=== PATIENT | female | born 1935 | race Caucasian/White ===

== ENCOUNTER 2016-07-30 15:34 | Inpatient (IN) | payer MEDICARE, OTHER ==
[~2016-07-30] VITALS: Ht 165.1 cm; Wt 71.7 kg
[~2016-07-30 15:34] MED LIST: ACET500T33 PO; ACET500T68 PO; AMIO200T2 PO; AMIT25TA PO; AMLO10TA2 PO; CALC-30 PO; CALC600T4 PO; CETI10TA30 PO; CHOL400D8 PO; FLEC100T PO; FLUT16SP NS; FURO-69 PO; LISI-334 PO; LISI40TA PO; LORA10TA3 PO; LOVA20TA2 PO; METO-269 PO; METO25TA9 PO; RIVA10TA PO; SERT100T PO
[2016-07-30 16:13] LABS: BASO # 0.1 x10^3/uL (0.0-0.2); BASO % 1 % (0-3); EOS % 7 % (0-3); HEMATOCRIT 37.4 % (36.0-47.0); HEMOGLOBIN 12.4 g/dL (12.0-15.5); LYMPH # 1.3 x10^3/uL (1.0-4.8); LYMPH % 18 % (24-48); MEAN CORPUSCULAR HEMOGLOBIN 29 pg (25-35); MEAN CORPUSCULAR HGB CONC 33 g/dL (31-37); MEAN CORPUSCULAR VOLUME 88 fL (79-100); MONO % 6 % (0-9); NEUT % 68 % (31-73); PLATELET COUNT 176 x10^3/uL (140-400); RED BLOOD COUNT 4.27 x10^6/uL (3.50-5.40); RED CELL DISTRIBUTION WIDTH 14.6 % (11.5-14.5)
[2016-07-30 16:24] LABS: CALCIUM 8.9 mg/dL (8.5-10.1); CREATININE 0.9 mg/dL (0.6-1.0); GFR 60.4; POTASSIUM 3.4 mmol/L (3.5-5.1)
--- NOTE | 2016-07-30 16:25 | RAD ---
Indication chest pain. A single view of the chest was obtained. Comparison is made to an examination 05/31/2016. The heart and pulmonary vessels appear unremarkable. A focal infiltrate is not seen. Pericardial fat pad is noted on the left. Significant pleural fluid is not seen. There is no pneumothorax. Healed left clavicular fracture is noted IMPRESSION:: No acute finding apparent in the chest
[2016-07-30] MEDS ORDERED: NITROGLYCERIN SUBLINGUAL 0.4 MG BOTTLE OF 25. SL PRN ×2 (17:30)
[2016-07-30] MEDS ORDERED: ONDANSETRON PF 4 MG/2 ML VIAL. IV PRN ×2 (17:30→20:15)
--- NOTE | 2016-07-30 18:36 | PHYS DOC ---
Past Medical History Past Medical History: A-Fib, High Cholesterol, Hypertension Past Surgical History: Appendectomy, Hysterectomy, Tonsillectomy Alcohol Use: Rarely Drug Use: None Adult General Chief Complaint Chief Complaint: CHEST PAIN HPI HPI This is a 81-year-old female who presents with ongoing chest pain that radiates across her chest and somewhat into her back as well. She states this is all started today area she has tried taking Pepcid and Tums without relief. She does have history of hypertension and hypercholesterolemia. She denies any history of cardiac disease although she states she was once told she may have mild congestive heart failure. She does take Lasix for lower extremity swelling. She denies any shortness of breath. She does rate her pain as a mild discomfort rated a 4 out of 10 on the pain scale. She denies any fever or chills. She denies any recent viral illnesses. Her blood pressure is mildly elevated in the 180/90 range. She does states she is compliant with her blood pressure medications. She states this is likely secondary to her his comfort. Review of Systems Review of Systems Constitutional: Denies fever or chills [] Eyes: Denies change in visual acuity, redness, or eye pain [] HENT: Denies nasal congestion or sore throat [] Respiratory: Denies cough or shortness of breath [] Cardiovascular: No additional information not addressed in HPI [] GI: Denies abdominal pain, nausea, vomiting, bloody stools or diarrhea [] : Denies dysuria or hematuria [] Musculoskeletal: Denies back pain or joint pain [] Integument: Denies rash or skin lesions [] Neurologic: Denies headache, focal weakness or sensory changes [] Endocrine: Denies polyuria or polydipsia [] Allergies Allergies Allergies Coded Allergies Type Severity Reaction Last Updated Verified Penicillins Allergy Intermediate 12/17/14 Yes Sulfa (Sulfonamide Antibiotics) Allergy Intermediate 12/17/14 Yes latex Allergy Intermediate Rash 01/17/15 Yes Physical Exam Physical Exam Constitutional: Well developed, well nourished, no acute distress, non-toxic appearance. [] HENT: Normocephalic, atraumatic, bilateral external ears normal, oropharynx moist, no oral exudates, nose normal. [] Eyes: PERRLA, EOMI, conjunctiva normal, no discharge. [] Neck: Normal range of motion, no tenderness, supple, no stridor. [] Cardiovascular:Heart rate regular rhythm, no murmur [] Lungs & Thorax: Bilateral breath sounds clear to auscultation [] Abdomen: Bowel sounds normal, soft, no tenderness, no masses, no pulsatile masses. [] Skin: Warm, dry, no erythema, no rash. [] Back: No tenderness, no CVA tenderness. [] Extremities: No tenderness, no cyanosis, no clubbing, ROM intact, no edema. [] Neurologic: Alert and oriented X 3, normal motor function, normal sensory function, no focal deficits noted. [] Psychologic: Affect normal, judgement normal, mood normal. [] Current Patient Data Vital Signs Vital Signs Date Time Temp Pulse Resp B/P Pulse Ox O2 Delivery O2 Flow Rate FiO2 07/30/16 16:45 60 20 192/78 95 Room Air 07/30/16 16:00 98.2 98.2 Lab Values Laboratory Tests Test 07/30/16 16:00 White Blood Count 7.0x10^3/uL (4.0-11.0) Red Blood Count 4.27x10^6/uL (3.50-5.40) Hemoglobin 12.4g/dL (12.0-15.5) Hematocrit 37.4% (36.0-47.0) Mean Corpuscular Volume 88fL (79-100) Mean Corpuscular Hemoglobin 29pg (25-35) Mean Corpuscular Hemoglobin Concent 33g/dL (31-37) Red Cell Distribution Width 14.6% (11.5-14.5) H Platelet Count 176x10^3/uL (140-400) Neutrophils (%) (Auto) 68% (31-73) Lymphocytes (%) (Auto) 18% (24-48) L Monocytes (%) (Auto) 6% (0-9) Eosinophils (%) (Auto) 7% (0-3) H Basophils (%) (Auto) 1% (0-3) Neutrophils # (Auto) 4.7x10^3uL (1.8-7.7) Lymphocytes # (Auto) 1.3x10^3/uL (1.0-4.8) Monocytes # (Auto) 0.4x10^3/uL (0.0-1.1) Eosinophils # (Auto) 0.5x10^3/uL (0.0-0.7) Basophils # (Auto) 0.1x10^3/uL (0.0-0.2) Sodium Level 140mmol/L (136-145) Potassium Level 3.4mmol/L (3.5-5.1) L Chloride Level 102mmol/L (98-107) Carbon Dioxide Level 26mmol/L (21-32) Anion Gap 12 (6-14) Blood Urea Nitrogen 18mg/dL (7-20) Creatinine 0.9mg/dL (0.6-1.0) Estimated GFR (Cockcroft-Gault) 60.4 Glucose Level 152mg/dL (70-99) H Calcium Level 8.9mg/dL (8.5-10.1) Troponin I Quantitative < 0.017ng/mL (0.000-0.055) Laboratory Tests 07/30/16 16:00 Laboratory Tests 07/30/16 16:00 EKG EKG EKG as interpreted by or shows sinus rhythm with a rate of 64 bpm. There are no acute ischemic ST findings on this EKG. Radiology/Procedures Radiology/Procedures Portable one view of the chest as interpreted by the radiologist does not reveal an acute cardiopulmonary process. Course & Med Decision Making Course & Med Decision Making Pertinent Labs and Imaging studies reviewed. (See chart for details) This 81-year-old female will be admitted for ongoing chest pain. Sibling nitroglycerin was administered for her ongoing pain. Her EKG and chest x-ray were unremarkable. Her set of cardiac enzymes is also negative. Her case is discussed with the hospitalist, Dr. Mendoza, who agreed to admit the patient with cardiology consult. Repeat troponins were ordered for her admission. She was admitted without incident. She states she took a full aspirin earlier today for her symptoms. Dragon Disclaimer Dragon Disclaimer This electronic medical record was generated, in whole or in part, using a voice recognition dictation system. Departure Departure Referrals: GAETANO DENISE DO (PCP) ARCADIO JOHNSON DO Jul 30, 2016 18:36
--- NOTE | 2016-07-30 18:53 | EKG ---
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
[2016-07-30 19:00] VITALS: BP 170/61
--- NOTE | 2016-07-30 20:11 | PDOC1 ---
History and Physical Past Medical History Past Medical History Past Medical History Cardiovascular: AFIB, ?CHF, HTN, Hyperlipidemia Psych: Anxiety ENT: Allergic Rhinitis Para: 6 Past Surgical History Past Surgical History: Hysterectomy Family History Family History: Cancer (sister -- ovarian CA, father -- melanoma), Diabetes ( mother, father), Heart Disease (mother, father, sister) Family History: Parent Social History Smoke: No ALCOHOL: none Drugs: None Cardiovascular: AFIB, CHF, HTN, Hyperlipidemia Psych: Anxiety Past Surgical History Past Surgical History: Appendectomy, Hysterectomy Family History Family History: Coronary Artery Disease Family History: Parent Social History ALCOHOL: none Drugs: None Current Medications Current Medications Current Medications Medications (Trade) Dose Ordered Sig/Darius Start Time Stop Time Status Last Admin Dose Admin Acetaminophen (Tylenol) 325 mg PRN Q6HRS PRN 07/30/16 20:15 UNV Acetaminophen/ Hydrocodone Bitart (Lortab 5/325) 1 tab PRN Q6HRS PRN 07/30/16 20:15 UNV Albuterol Sulfate (Ventolin Neb Soln) 2.5 mg PRN Q4HRS PRN 07/30/16 20:15 UNV Hydralazine HCl (Apresoline) 10 mg PRN Q4HRS PRN 07/30/16 20:15 UNV Nitroglycerin (Nitrostat) 0.4 mg PRN Q5MIN PRN 07/30/16 17:30 Ondansetron HCl (Zofran) 4 mg PRN Q8HRS PRN 07/30/16 20:15 UNV Allergies Allergies Allergies Coded Allergies Type Severity Reaction Last Updated Verified Penicillins Allergy Intermediate 12/17/14 Yes Sulfa (Sulfonamide Antibiotics) Allergy Intermediate 12/17/14 Yes latex Allergy Intermediate Rash 01/17/15 Yes ROS Review of System CONSTITUTIONAL: No fever or chills EYES: No recent changes SKIN: No rash or itching CARDIOVASCULAR: chest pain, no syncope, palpitations, or edema RESPIRATORY: No SOB or cough GASTROINTESTINAL: No nausea, vomiting or abdominal pain NEUROLOGICAL: No headaches or weakness ENDOCRINE: No cold or heat intolerance GENITOURINARY: No urgency or frequency of urination MUSCULOSKELETAL: No back pain or joint pain LYMPHATICS: No enlarged lymph nodes PSYCHIATRIC: No anxiety or depression Physical Exam Physical Exam GEN.: No apparent distress. Alert and oriented. HEENT: Head is normocephalic, atraumatic NECK: Supple. no jvd LUNGS: Clear to auscultation. normal airflow HEART: RRR, S1, S2 present. Peripheral pulses intact ABDOMEN: Soft, nontender. Positive bowel sounds. EXTREMITIES: Without any cyanosis. NEUROLOGIC: Normal speech, normal tone PSYCHIATRIC: Normal affect, normal mood. SKIN: No visible ulcerations Vitals Vitals Vital Signs Date Time Temp Pulse Resp B/P Pulse Ox O2 Delivery O2 Flow Rate FiO2 07/30/16 19:14 64 16 160/71 96 07/30/16 17:30 Room Air 07/30/16 16:00 98.2 98.2 Labs Labs Laboratory Tests Test 07/30/16 16:00 White Blood Count 7.0x10^3/uL (4.0-11.0) Red Blood Count 4.27x10^6/uL (3.50-5.40) Hemoglobin 12.4g/dL (12.0-15.5) Hematocrit 37.4% (36.0-47.0) Mean Corpuscular Volume 88fL (79-100) Mean Corpuscular Hemoglobin 29pg (25-35) Mean Corpuscular Hemoglobin Concent 33g/dL (31-37) Red Cell Distribution Width 14.6% (11.5-14.5) Platelet Count 176x10^3/uL (140-400) Neutrophils (%) (Auto) 68% (31-73) Lymphocytes (%) (Auto) 18% (24-48) Monocytes (%) (Auto) 6% (0-9) Eosinophils (%) (Auto) 7% (0-3) Basophils (%) (Auto) 1% (0-3) Neutrophils # (Auto) 4.7x10^3uL (1.8-7.7) Lymphocytes # (Auto) 1.3x10^3/uL (1.0-4.8) Monocytes # (Auto) 0.4x10^3/uL (0.0-1.1) Eosinophils # (Auto) 0.5x10^3/uL (0.0-0.7) Basophils # (Auto) 0.1x10^3/uL (0.0-0.2) Sodium Level 140mmol/L (136-145) Potassium Level 3.4mmol/L (3.5-5.1) Chloride Level 102mmol/L (98-107) Carbon Dioxide Level 26mmol/L (21-32) Anion Gap 12 (6-14) Blood Urea Nitrogen 18mg/dL (7-20) Creatinine 0.9mg/dL (0.6-1.0) Estimated GFR (Cockcroft-Gault) 60.4 Glucose Level 152mg/dL (70-99) Calcium Level 8.9mg/dL (8.5-10.1) Troponin I Quantitative < 0.017ng/mL (0.000-0.055) Laboratory Tests Test 07/30/16 16:00 White Blood Count 7.0x10^3/uL (4.0-11.0) Red Blood Count 4.27x10^6/uL (3.50-5.40) Hemoglobin 12.4g/dL (12.0-15.5) Hematocrit 37.4% (36.0-47.0) Mean Corpuscular Volume 88fL (79-100) Mean Corpuscular Hemoglobin 29pg (25-35) Mean Corpuscular Hemoglobin Concent 33g/dL (31-37) Red Cell Distribution Width 14.6% (11.5-14.5) Platelet Count 176x10^3/uL (140-400) Neutrophils (%) (Auto) 68% (31-73) Lymphocytes (%) (Auto) 18% (24-48) Monocytes (%) (Auto) 6% (0-9) Eosinophils (%) (Auto) 7% (0-3) Basophils (%) (Auto) 1% (0-3) Neutrophils # (Auto) 4.7x10^3uL (1.8-7.7) Lymphocytes # (Auto) 1.3x10^3/uL (1.0-4.8) Monocytes # (Auto) 0.4x10^3/uL (0.0-1.1) Eosinophils # (Auto) 0.5x10^3/uL (0.0-0.7) Basophils # (Auto) 0.1x10^3/uL (0.0-0.2) Sodium Level 140mmol/L (136-145) Potassium Level 3.4mmol/L (3.5-5.1) Chloride Level 102mmol/L (98-107) Carbon Dioxide Level 26mmol/L (21-32) Anion Gap 12 (6-14) Blood Urea Nitrogen 18mg/dL (7-20) Creatinine 0.9mg/dL (0.6-1.0) Estimated GFR (Cockcroft-Gault) 60.4 Glucose Level 152mg/dL (70-99) Calcium Level 8.9mg/dL (8.5-10.1) Troponin I Quantitative < 0.017ng/mL (0.000-0.055) VTE Prophylaxis Ordered VTE Prophylaxis Devices: Yes VTE Pharmacological Prophylaxi: Yes BRIAN CALLAHAN MD Jul 30, 2016 20:11
[2016-07-30] MEDS ORDERED: ALBUTEROL SULFATE 2.5 MG/3 ML NEBU. NEB PRN (20:15)
[2016-07-30] MEDS ORDERED: ACETAMINOPHEN 325 MG TABLET. PO PRN (20:15)
[2016-07-30] MEDS ORDERED: ATORVASTATIN CALCIUM 20 MG TABLET PO ONE (21:00)
[2016-07-30] MEDS ORDERED: RIVAROXABAN 10 MG TABLET. PO ONE (21:00)
[2016-07-30] MEDS ORDERED: SERTRALINE 50 MG TABLET. PO ONE (21:00)
[2016-07-30] MEDS ORDERED: POTASSIUM CHLORIDE 20 MEQ TABLET.ER. PO ONE (21:00)
[2016-07-30] MEDS ORDERED: METOPROLOL SUCC 24HR ER 50 MG TAB.ER.24H. PO ONE (21:00)
[2016-07-30] MEDS ORDERED: FLECAINIDE 50 MG TABLET. PO ONE (21:00)
[2016-07-30] MEDS: HYDROCODONE/APAP 5/325MG TABLET. PO PRN (21:33)
[2016-07-30 23:50] VITALS: BP 153/68
[2016-07-31] MEDS ORDERED: FLEC100T PO (02:34)
[2016-07-31 03:00] VITALS: BP 165/72
[2016-07-31 06:10] LABS: BASO # 0.1 x10^3/uL (0.0-0.2); BASO % 1 % (0-3); EOS % 9 % (0-3); HEMATOCRIT 38.6 % (36.0-47.0); HEMOGLOBIN 13.2 g/dL (12.0-15.5); LYMPH # 1.9 x10^3/uL (1.0-4.8); LYMPH % 30 % (24-48); MEAN CORPUSCULAR HEMOGLOBIN 29 pg (25-35); MEAN CORPUSCULAR HGB CONC 34 g/dL (31-37); MEAN CORPUSCULAR VOLUME 86 fL (79-100); MONO % 6 % (0-9); NEUT % 54 % (31-73); PLATELET COUNT 188 x10^3/uL (140-400); RED BLOOD COUNT 4.52 x10^6/uL (3.50-5.40); RED CELL DISTRIBUTION WIDTH 14.3 % (11.5-14.5); WHITE BLOOD COUNT 6.5 x10^3/uL (4.0-11.0)
[2016-07-31 06:31] LABS: CALCIUM 9.1 mg/dL (8.5-10.1); CREATININE 0.8 mg/dL (0.6-1.0); GFR 69.2; POTASSIUM 4.4 mmol/L (3.5-5.1)
[2016-07-31 07:00] VITALS: BP 235/103
[2016-07-31] MEDS ORDERED: FLUTICASONE 50MCG/NASAL SPRAY 16GM BOTTLE. NS PRN (08:15)
[2016-07-31] MEDS: hydrALAZINE 20 MG/ML VIAL. IVP PRN ×2 (08:15→20:27)
[2016-07-31] MEDS ORDERED: ACETAMINOPHEN 500 MG TABLET PO PRN (08:15)
[2016-07-31] MEDS ORDERED: SERTRALINE 50 MG TABLET. PO SCH (09:00)
[2016-07-31] MEDS ORDERED: ATORVASTATIN CALCIUM 10 MG TABLET. PO SCH ×2 (09:00→21:00)
[2016-07-31] MEDS ORDERED: RIVAROXABAN 10 MG TABLET. PO SCH ×2 (09:00→17:00)
--- NOTE | 2016-07-31 09:26 | EKG ---
[facility] [address] [place] [address] Test Date: 2016-07-31 Test Time: 09:31:24 Pat Name: ISRAEL MAC Department: Room: 200 1 Gender: F Field Technician: : 1935 Requested By: MATILDE QUINTERO Order Number: [id number] Reading MD: Measurements Intervals [place] Rate: 62 P: -90 [place]: 178 QRS: -12 QRSD: 104 T: 31 QT: 454 QTc: 463 Interpretive Statements SINUS RHYTHM LEFTWARD AXIS NO SPECIFIC ECG ABNORMALITIES RI6.01 Compared to ECG 06/01/2016 10:08:34 First degree AV block no longer present
--- NOTE | 2016-07-31 09:47 | PDOC ---
Provider Note Provider Note Pt. seen and examined. Dictated H&P Anxiety, HTN Add amlodipine. xanax prn, restoril for sleep. DC tomorrow if stable. thx for consult. ELVIRA LOPEZ MD Jul 31, 2016 09:47
[2016-07-31] MEDS ORDERED: TEMAZEPAM 15 MG CAPSULE PO PRN (10:15)
[2016-07-31] MEDS: FUROSEMIDE 20 MG TABLET PO SCH (10:16)
[2016-07-31] MEDS: CETIRIZINE HCL 10 MG TABLET PO SCH (10:17)
[2016-07-31] MEDS: CALCIUM CARBONATE 500 MG TABLET PO SCH (10:17)
[2016-07-31] MEDS: FLECAINIDE 50 MG TABLET. PO SCH (10:18)
[2016-07-31] MEDS: LISINOPRIL 40 MG TABLET. PO SCH (10:18)
[2016-07-31] MEDS: CHOLECALCIFEROL (VITAMIN D3) 1,000 UNIT TABLET PO SCH (10:18)
[2016-07-31] MEDS: METOPROLOL SUCC 24HR ER 25 MG TAB.ER.24H. PO SCH (10:18)
[2016-07-31] MEDS: HYDROCODONE/APAP 5/325MG TABLET. PO PRN ×2 (10:19→18:56)
[2016-07-31] MEDS ORDERED: AMLODIPINE BESYLATE 10 MG TABLET PO ONE (10:45)
[2016-07-31 10:47] VITALS: BP 148/79
--- NOTE | 2016-07-31 11:23 | CONS ---
DATE OF CONSULTATION: 07/31/2016 REASON FOR CONSULTATION: Chest pain. HISTORY OF PRESENT ILLNESS: The patient is a pleasant 81-year-old woman who comes into the hospital in the setting of hypertension. She reportedly had some hypertension at home, although yesterday with some chest discomfort, which prompted admission to the hospital. She denies any syncope or palpitations. She has been compliant with her medications. Per family, apparently she had some hypertensive episodes approximately 2-3 weeks ago, which resolved without any significant issues. She since arrival has had intermittent chest pain as well with blood pressure lability and systolic spikes up to 220 or so. She otherwise denies any new changes at home. Since her most recent cardioversion, she has done quite well and has had recovery of her functional capacity back to baseline. During a long discussion with the patient and her family, it appears that she has had a long standing history of anxiety, treated with sertraline and over the last few days, she has had increasing anxiety issues, mostly related to her relationship with her as well as other generalized issues related to her family. PAST MEDICAL HISTORY: 1. Hypertension. 2. Anxiety. 3. Paroxysmal atrial fibrillation, status post cardioversion x 2. SOCIAL HISTORY: The patient is . Denies any alcohol, tobacco or illicit drug use. FAMILY HISTORY: Noncontributory. MEDICATIONS: 1. Metoprolol 25 mg XL daily. 2. Flecainide 100 mg b.i.d. 3. Lisinopril 40 mg daily. 4. Atorvastatin 10 mg daily. 5. Sertraline. ALLERGIES: TO PENICILLIN, SULFA AND LATEX. REVIEW OF SYSTEMS: Negative for 10 out of 14 systems reviewed, unless otherwise mentioned above in HPI. PHYSICAL EXAMINATION: VITAL SIGNS: Afebrile, heart rate 65, blood pressure 160/80, pulse ox 98 on room air. GENERAL: She appears mildly anxious, alert and oriented x 3. HEAD AND NECK: Unremarkable. CARDIAC: Regular rate and rhythm without any murmurs, rubs or gallops. LUNGS: Clear to auscultation. ABDOMEN: Soft, nontender, nondistended. EXTREMITIES: No clubbing, cyanosis or edema. 2+ radial pulses. NEUROLOGIC: No focal deficits. MUSCULOSKELETAL: No trauma. DIAGNOSTIC STUDIES: 1. Hemoglobin, platelets, creatinine, potassium and cardiac enzymes are negative. 2. EKG is unremarkable. 3. Telemetry is unremarkable. 4. Myocardial perfusion study within the last year has been normal. She has had a recent echocardiogram, which demonstrated normal LV systolic function. IMPRESSION: 1. 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 2. No obvious signs of myocardial ischemia. 3. Hypertension, likely related to age as well as multiple anxiety provoking issues with suboptimally controlled anxiety. RECOMMENDATIONS: 1. We will start her on amlodipine 10 mg daily and I have advised her to take it easy today and I have asked her family to leave the room and we will treat her anxiety with her home medications and I have asked her to follow up with her primary care physician to reassess any further needs for medication therapy. We will monitor her overnight and if she is stable and with better blood pressure control, anticipate discharge in the morning. Thank you for this consultation. ELVIRA LOPEZ MD DR: AVE/fausto JOB#: [id number] / [id number] MARTINE
--- NOTE | 2016-07-31 12:25 | PDOC ---
PROGRESS NOTES Chief Complaint Chief Complaint cc: chest pain A/P Chest pain, possible due to anxiety Chronic afib in sinus HTN Plan add amlodipine troponin negative labs better cardiology recommendatons noted telemetry oral AC supportive care History of Present Illness History of Present Illness headaches no fever Vitals Vitals Vital Signs Date Time Temp Pulse Resp B/P Pulse Ox O2 Delivery O2 Flow Rate FiO2 07/31/16 10:47 97.6 62 18 148/79 96 Room Air 97.6 Physical Exam General: Alert, Oriented X3 Heart: Normal S1, Normal S2 Lungs: Clear, Crackles Abdomen: Normal bowel sounds Extremities: No clubbing Labs LABS Laboratory Tests Test 07/30/16 16:00 07/30/16 23:23 07/31/16 05:20 White Blood Count 7.0x10^3/uL (4.0-11.0) 6.5x10^3/uL (4.0-11.0) Red Blood Count 4.27x10^6/uL (3.50-5.40) 4.52x10^6/uL (3.50-5.40) Hemoglobin 12.4g/dL (12.0-15.5) 13.2g/dL (12.0-15.5) Hematocrit 37.4% (36.0-47.0) 38.6% (36.0-47.0) Mean Corpuscular Volume 88fL (79-100) 86fL (79-100) Mean Corpuscular Hemoglobin 29pg (25-35) 29pg (25-35) Mean Corpuscular Hemoglobin Concent 33g/dL (31-37) 34g/dL (31-37) Red Cell Distribution Width 14.6% (11.5-14.5) 14.3% (11.5-14.5) Platelet Count 176x10^3/uL (140-400) 188x10^3/uL (140-400) Neutrophils (%) (Auto) 68% (31-73) 54% (31-73) Lymphocytes (%) (Auto) 18% (24-48) 30% (24-48) Monocytes (%) (Auto) 6% (0-9) 6% (0-9) Eosinophils (%) (Auto) 7% (0-3) 9% (0-3) Basophils (%) (Auto) 1% (0-3) 1% (0-3) Neutrophils # (Auto) 4.7x10^3uL (1.8-7.7) 3.5x10^3uL (1.8-7.7) Lymphocytes # (Auto) 1.3x10^3/uL (1.0-4.8) 1.9x10^3/uL (1.0-4.8) Monocytes # (Auto) 0.4x10^3/uL (0.0-1.1) 0.4x10^3/uL (0.0-1.1) Eosinophils # (Auto) 0.5x10^3/uL (0.0-0.7) 0.6x10^3/uL (0.0-0.7) Basophils # (Auto) 0.1x10^3/uL (0.0-0.2) 0.1x10^3/uL (0.0-0.2) Sodium Level 140mmol/L (136-145) 143mmol/L (136-145) Potassium Level 3.4mmol/L (3.5-5.1) 4.4mmol/L (3.5-5.1) Chloride Level 102mmol/L (98-107) 106mmol/L (98-107) Carbon Dioxide Level 26mmol/L (21-32) 28mmol/L (21-32) Anion Gap 12 (6-14) 9 (6-14) Blood Urea Nitrogen 18mg/dL (7-20) 18mg/dL (7-20) Creatinine 0.9mg/dL (0.6-1.0) 0.8mg/dL (0.6-1.0) Estimated GFR (Cockcroft-Gault) 60.4 69.2 Glucose Level 152mg/dL (70-99) 86mg/dL (70-99) Calcium Level 8.9mg/dL (8.5-10.1) 9.1mg/dL (8.5-10.1) Troponin I Quantitative < 0.017ng/mL (0.000-0.055) < 0.017ng/mL (0.000-0.055) < 0.017ng/mL (0.000-0.055) Assessment and Plan Assessmemt and Plan Problems Medical Problems: (1) Chest pain Status: Acute Problems: Comment Review of Relevant I have reviewed the following items neftaly (where applicable) has been applied. Labs Laboratory Tests Test 07/30/16 16:00 07/30/16 23:23 07/31/16 05:20 White Blood Count 7.0x10^3/uL (4.0-11.0) 6.5x10^3/uL (4.0-11.0) Red Blood Count 4.27x10^6/uL (3.50-5.40) 4.52x10^6/uL (3.50-5.40) Hemoglobin 12.4g/dL (12.0-15.5) 13.2g/dL (12.0-15.5) Hematocrit 37.4% (36.0-47.0) 38.6% (36.0-47.0) Mean Corpuscular Volume 88fL (79-100) 86fL (79-100) Mean Corpuscular Hemoglobin 29pg (25-35) 29pg (25-35) Mean Corpuscular Hemoglobin Concent 33g/dL (31-37) 34g/dL (31-37) Red Cell Distribution Width 14.6% (11.5-14.5) 14.3% (11.5-14.5) Platelet Count 176x10^3/uL (140-400) 188x10^3/uL (140-400) Neutrophils (%) (Auto) 68% (31-73) 54% (31-73) Lymphocytes (%) (Auto) 18% (24-48) 30% (24-48) Monocytes (%) (Auto) 6% (0-9) 6% (0-9) Eosinophils (%) (Auto) 7% (0-3) 9% (0-3) Basophils (%) (Auto) 1% (0-3) 1% (0-3) Neutrophils # (Auto) 4.7x10^3uL (1.8-7.7) 3.5x10^3uL (1.8-7.7) Lymphocytes # (Auto) 1.3x10^3/uL (1.0-4.8) 1.9x10^3/uL (1.0-4.8) Monocytes # (Auto) 0.4x10^3/uL (0.0-1.1) 0.4x10^3/uL (0.0-1.1) Eosinophils # (Auto) 0.5x10^3/uL (0.0-0.7) 0.6x10^3/uL (0.0-0.7) Basophils # (Auto) 0.1x10^3/uL (0.0-0.2) 0.1x10^3/uL (0.0-0.2) Sodium Level 140mmol/L (136-145) 143mmol/L (136-145) Potassium Level 3.4mmol/L (3.5-5.1) 4.4mmol/L (3.5-5.1) Chloride Level 102mmol/L (98-107) 106mmol/L (98-107) Carbon Dioxide Level 26mmol/L (21-32) 28mmol/L (21-32) Anion Gap 12 (6-14) 9 (6-14) Blood Urea Nitrogen 18mg/dL (7-20) 18mg/dL (7-20) Creatinine 0.9mg/dL (0.6-1.0) 0.8mg/dL (0.6-1.0) Estimated GFR (Cockcroft-Gault) 60.4 69.2 Glucose Level 152mg/dL (70-99) 86mg/dL (70-99) Calcium Level 8.9mg/dL (8.5-10.1) 9.1mg/dL (8.5-10.1) Troponin I Quantitative < 0.017ng/mL (0.000-0.055) < 0.017ng/mL (0.000-0.055) < 0.017ng/mL (0.000-0.055) Laboratory Tests Test 07/30/16 16:00 07/30/16 23:23 07/31/16 05:20 White Blood Count 7.0x10^3/uL (4.0-11.0) 6.5x10^3/uL (4.0-11.0) Red Blood Count 4.27x10^6/uL (3.50-5.40) 4.52x10^6/uL (3.50-5.40) Hemoglobin 12.4g/dL (12.0-15.5) 13.2g/dL (12.0-15.5) Hematocrit 37.4% (36.0-47.0) 38.6% (36.0-47.0) Mean Corpuscular Volume 88fL (79-100) 86fL (79-100) Mean Corpuscular Hemoglobin 29pg (25-35) 29pg (25-35) Mean Corpuscular Hemoglobin Concent 33g/dL (31-37) 34g/dL (31-37) Red Cell Distribution Width 14.6% (11.5-14.5) 14.3% (11.5-14.5) Platelet Count 176x10^3/uL (140-400) 188x10^3/uL (140-400) Neutrophils (%) (Auto) 68% (31-73) 54% (31-73) Lymphocytes (%) (Auto) 18% (24-48) 30% (24-48) Monocytes (%) (Auto) 6% (0-9) 6% (0-9) Eosinophils (%) (Auto) 7% (0-3) 9% (0-3) Basophils (%) (Auto) 1% (0-3) 1% (0-3) Neutrophils # (Auto) 4.7x10^3uL (1.8-7.7) 3.5x10^3uL (1.8-7.7) Lymphocytes # (Auto) 1.3x10^3/uL (1.0-4.8) 1.9x10^3/uL (1.0-4.8) Monocytes # (Auto) 0.4x10^3/uL (0.0-1.1) 0.4x10^3/uL (0.0-1.1) Eosinophils # (Auto) 0.5x10^3/uL (0.0-0.7) 0.6x10^3/uL (0.0-0.7) Basophils # (Auto) 0.1x10^3/uL (0.0-0.2) 0.1x10^3/uL (0.0-0.2) Sodium Level 140mmol/L (136-145) 143mmol/L (136-145) Potassium Level 3.4mmol/L (3.5-5.1) 4.4mmol/L (3.5-5.1) Chloride Level 102mmol/L (98-107) 106mmol/L (98-107) Carbon Dioxide Level 26mmol/L (21-32) 28mmol/L (21-32) Anion Gap 12 (6-14) 9 (6-14) Blood Urea Nitrogen 18mg/dL (7-20) 18mg/dL (7-20) Creatinine 0.9mg/dL (0.6-1.0) 0.8mg/dL (0.6-1.0) Estimated GFR (Cockcroft-Gault) 60.4 69.2 Glucose Level 152mg/dL (70-99) 86mg/dL (70-99) Calcium Level 8.9mg/dL (8.5-10.1) 9.1mg/dL (8.5-10.1) Troponin I Quantitative < 0.017ng/mL (0.000-0.055) < 0.017ng/mL (0.000-0.055) < 0.017ng/mL (0.000-0.055) Medications Current Medications Ondansetron HCl (Zofran) 4 mg PRN Q8HRS PRN IV NAUSEA/VOMITING; Start 07/30/16 at 17:30; Stop 07/31/16 at 08:14; Status DC Nitroglycerin (Nitrostat) 0.4 mg PRN Q5MIN PRN SL CHEST PAIN; Start 07/30/16 at 17:30; Stop 07/31/16 at 08:14; Status DC Nitroglycerin (Nitrostat) 0.4 mg PRN Q5MIN PRN SL CHEST PAIN; Start 07/30/16 at 17:30 Acetaminophen (Tylenol) 325 mg PRN Q6HRS PRN PO MILD PAIN / TEMP; Start at 20:15; Stop 07/31/16 at 08:15; Status DC Acetaminophen/ Hydrocodone Bitart (Lortab 5/325) 1 tab PRN Q6HRS PRN PO MODERATE TO SEVERE PAIN Last administered on 07/31/16 10:19; Start 07/30/16 at 20:15 Hydralazine HCl (Apresoline) 10 mg PRN Q4HRS PRN IVP ELEVATED BP, SEE COMMENTS Last administered on 07/31/16 08:15; Start 07/30/16 at 20:15 Ondansetron HCl (Zofran) 4 mg PRN Q8HRS PRN IV NAUSEA/VOMITING; Start 07/30/16 at 20:15 Albuterol Sulfate (Ventolin Neb Soln) 2.5 mg PRN Q4HRS PRN NEB SHORTNESS OF BREATH; Start 07/30/16 at 20:15 Potassium Chloride (Klor-Con) 20 meq 1X ONCE PO Last administered on 21:00; Start 07/30/16 at 21:00; Stop 07/30/16 at 21:01; Status DC Metoprolol Succinate (Toprol Xl) 50 mg 1X ONCE PO Last administered on 21:31; Start 07/30/16 at 21:00; Stop 07/30/16 at 21:01; Status DC Flecainide Acetate (Tambocor) 100 mg 1X ONCE PO Last administered on 21:32; Start 07/30/16 at 21:00; Stop 07/30/16 at 21:01; Status DC Sertraline HCl (Zoloft) 200 mg 1X ONCE PO Last administered on 07/30/16 21:31 ; Start 07/30/16 at 21:00; Stop 07/30/16 at 21:01; Status DC Atorvastatin Calcium (Lipitor) 20 mg 1X ONCE PO Last administered on 21:30; Start 07/30/16 at 21:00; Stop 07/30/16 at 21:01; Status DC Rivaroxaban (Xarelto) 20 mg 1X ONCE PO Last administered on 07/30/16 21:31; Start 07/30/16 at 21:00; Stop 07/30/16 at 21:01; Status DC Acetaminophen (Tylenol) 500 mg PRN TID PRN PO PAIN; Start 07/31/16 at 08:15 Fluticasone Propionate (Flonase) 2 spray PRN DAILY PRN NS ALLERGIES; Start 05/06 at 08:15 Furosemide (Lasix) 20 mg DAILY PO Last administered on 07/31/16 10:16; Start 07/31/16 at 09:00 Lisinopril (Prinivil) 40 mg DAILY PO Last administered on 07/31/16 10:18; Start 07/31/16 at 09:00 Metoprolol Succinate (Toprol Xl) 25 mg DAILY PO Last administered on 07/31/16 10:18; Start 07/31/16 at 09:00 Rivaroxaban (Xarelto) 20 mg DAILY PO ; Start 07/31/16 at 09:00; Stop 07/31/16 at 12:19; Status DC Calcium Carbonate/ Glycine (Oscal) 500 mg DAILY PO Last administered on 10:17; Start 07/31/16 at 09:00 Vitamin D (Vitamin D3) 1,000 unit DAILY PO Last administered on 07/31/16 10:18 ; Start 07/31/16 at 09:00 Flecainide Acetate (Tambocor) 100 mg QHS PO ; Start 07/31/16 at 21:00 Flecainide Acetate (Tambocor) 50 mg DAILY PO Last administered on 07/31/16 10: 18; Start 07/31/16 at 09:00 Cetirizine HCl (Zyrtec) 10 mg DAILY PO Last administered on 07/31/16 10:17; Start 07/31/16 at 09:00 Atorvastatin Calcium (Lipitor) 5 mg DAILY PO ; Start 07/31/16 at 09:00; Stop 05/06 at 12:18; Status DC Sertraline HCl (Zoloft) 100 mg BID PO Last administered on 07/31/16 10:17; Start 07/31/16 at 09:00; Stop 07/31/16 at 12:19; Status DC Temazepam (Restoril) 15 mg PRN QHS PRN PO INSOMNIA; Start 07/31/16 at 10:15 Amlodipine Besylate (Norvasc) 10 mg DAILY PO ; Start 08/01/16 at 09:00 Amlodipine Besylate (Norvasc) 10 mg 1X ONCE PO ; Start 07/31/16 at 10:45; Stop 07/31/16 at 10:46; Status DC Atorvastatin Calcium (Lipitor) 5 mg QHS PO ; Start 07/31/16 at 21:00 Rivaroxaban (Xarelto) 20 mg DAILYWSUP PO ; Start 07/31/16 at 17:00 Sertraline HCl (Zoloft) 100 mg BID PO ; Start 07/31/16 at 21:00 Active Scripts Active Reported Flecainide Acetate 100 Mg Tablet 50 Mg PO DAILY Lasix (Furosemide) 20 Mg Tablet 1 Tab PO DAILY Metoprolol Succinate ( Xl ) (Metoprolol Succinate) 25 Mg Tab.er.24h 2 Tab PO DAILY Acetaminophen 500 Mg Tablet 1 Tab PO PRN TID PRN Zoloft (Sertraline Hcl) 100 Mg Tablet 2 Tab PO BID Flecainide Acetate 100 Mg Tablet 1 Tab PO HS Fluticasone Propionate Nasal [place] (Fluticasone Propionate) 16 Gm [place].susp 2 [place] NS DAILY PRN Vitamin D3 (Cholecalciferol (Vitamin D3)) 400 Unit/1 Ml Drops 800 Unit PO DAILY Calcium (Calcium Carbonate) 600 Mg Tablet 600 Mg PO DAILY Lisinopril 40 Mg Tablet 1 Tab PO DAILY Loratadine 10 Mg Tablet 1 Tab PO DAILY Xarelto (Rivaroxaban) 10 Mg Tablet 20 Mg PO DAILY Lovastatin 20 Mg Tablet 1 Tab PO DAILY Vitals/I & O Vital Sign - Last 24 Hours 07/30/16 07/30/16 07/30/16 07/30/16 16:00 16:45 17:30 18:25 Temp 98.2 98.2 Pulse 64 60 58 64 Resp 16 20 20 16 B/P 181/82 192/78 191/77 184/79 Pulse Ox 97 95 97 96 O2 Delivery Room Air Room Air Room Air 07/30/16 07/30/16 07/30/16 07/30/16 19:00 19:00 19:14 21:31 Temp 97.4 207.3 97.4 207.3 Pulse 61 61 64 64 Resp 16 16 B/P 170/61 170/61 160/71 160/71 Pulse Ox 94 94 96 O2 Delivery Room Air 07/30/16 07/30/16 07/30/16 07/30/16 21:32 21:33 22:33 23:50 Temp 98.0 98.0 Pulse 64 54 Resp 18 18 14 B/P 160/71 153/68 Pulse Ox 95 O2 Delivery Room Air Room Air Room Air 07/31/16 07/31/16 07/31/16 07/31/16 03:00 07:00 08:15 10:18 Temp 98.5 97.5 98.5 97.5 Pulse 55 60 61 61 Resp 14 17 B/P 165/72 235/103 235/103 235/103 Pulse Ox 97 96 O2 Delivery Room Air Room Air 07/31/16 07/31/16 07/31/16 07/31/16 10:18 10:18 10:19 10:47 Temp 97.6 97.6 Pulse 61 61 62 Resp 20 18 B/P 235/103 235/103 148/79 Pulse Ox 96 96 O2 Delivery Room Air Intake and Output 07/30/16 07/30/16 07/31/16 15:00 23:00 07:00 Intake Total 120 ml Balance 120 ml BRIAN CALLAHAN MD Jul 31, 2016 12:25
[2016-07-31 15:00] VITALS: BP_SYST 144; BP_SYST 175; BP_DIAS 68; BP_DIAS 86
[2016-07-31 20:00] VITALS: BP 223/119
[2016-07-31] MEDS ORDERED: FLECAINIDE 50 MG TABLET. PO SCH (21:00)
[2016-07-31] MEDS: SERTRALINE 50 MG TABLET. PO SCH (21:39)
[2016-07-31 22:56] VITALS: BP 131/63
[2016-08-01 02:37] VITALS: BP 158/63
--- NOTE | 2016-08-01 03:35 | HP ---
ADMIT DATE: 07/30/2016 CHIEF COMPLAINT: Chest pain. HISTORY OF PRESENT ILLNESS: This is a 81-year-old female patient with prior history of AFib and recent cardioversion in 05/2016, presented to the ER with complaints of chest pain, started this morning, noticed after she woke up. She tried Pepcid, Tums, but no success. She denies any irregular heartbeat, palpitations, syncope or shortness of breath; however, the patient noticed this nagging pain across her chest, sometimes radiating to her back, both sides. She describes this pain 3-09/27. She denies any fever, chills or cough; however, her pain is better if she sits, worse with lying down. She denies any noncompliance or sick contacts. PAST MEDICAL HISTORY: Please see my electronic H and P. REVIEW OF SYSTEMS: Please see my electronic H and P. PHYSICAL EXAMINATION: Please see my electronic H and P. LABORATORY FINDINGS: Sodium 140, potassium 3.4, chloride 102, carbon dioxide 26, anion gap 12, BUN is 18, creatinine is 0.9, glucose is 152. First set of troponin less than 0.017, hemoglobin is 12.4, MCV is 88, platelets 176. IMAGING STUDIES: Chest x-ray: No acute process seen. EKG: Normal sinus rhythm, no acute ST-T wave changes. ASSESSMENT: 1. Chest pain, unclear etiology, possible pleuritis. 2. Chronic AFib, currently in sinus rhythm. Recent cardioversion in 05/2016. 3. Hypertension. 4. Hyperlipidemia. PLAN: 1. To admit the patient to Cardiac floor on telemetry. Two sets of troponins. 2. Cardiology consultation. 3. Home medications reviewed and reconciled. 4. Old records reviewed. 5. If the patient's blood pressures are not controlled, we will try IV hydralazine 10 mg. 6. P.r.n. nitroglycerin. 7. Replace potassium. BRIAN CALLAHAN MD DR: NBA/fausto JOB#: [id number] / [id number] MARTINE
[2016-08-01 09:00] VITALS: BP 145/65
[2016-08-01] MEDS ORDERED: AMLODIPINE BESYLATE 10 MG TABLET PO SCH (09:00)
[2016-08-01] MEDS: CHOLECALCIFEROL (VITAMIN D3) 1,000 UNIT TABLET PO SCH (09:34)
[2016-08-01] MEDS: CALCIUM CARBONATE 500 MG TABLET PO SCH (09:34)
[2016-08-01] MEDS: FUROSEMIDE 20 MG TABLET PO SCH (09:35)
[2016-08-01] MEDS: LISINOPRIL 40 MG TABLET. PO SCH (09:35)
[2016-08-01] MEDS: METOPROLOL SUCC 24HR ER 25 MG TAB.ER.24H. PO SCH (09:35)
[2016-08-01] MEDS: SERTRALINE 50 MG TABLET. PO SCH (09:36)
[2016-08-01] MEDS: FLECAINIDE 50 MG TABLET. PO SCH (09:37)
[2016-08-01] MEDS: CETIRIZINE HCL 10 MG TABLET PO SCH (09:37)
[2016-08-01] MEDS ORDERED: AMLO10TA2 PO (10:41)
[2016-08-01 11:00] VITALS: BP 143/69
--- NOTE | 2016-08-01 11:18 | PDOC ---
PROGRESS NOTES Chief Complaint Chief Complaint cc: chest pain A/P Chest pain, possible due to anxiety Chronic afib in sinus HTN Plan add amlodipine, if BP stable can go home today and follow up with PCP and cardiology as out pt. troponin negative labs better cardiology recommendatons noted telemetry oral AC supportive care History of Present Illness History of Present Illness headaches no fever Vitals Vitals Vital Signs Date Time Temp Pulse Resp B/P Pulse Ox O2 Delivery O2 Flow Rate FiO2 08/01/16 09:37 73 145/65 08/01/16 02:37 98.3 20 94 Room Air 98.3 Physical Exam General: Alert, Oriented X3 Heart: Normal S1, Normal S2 Lungs: Clear, Crackles Abdomen: Normal bowel sounds Extremities: No clubbing Assessment and Plan Assessmemt and Plan Problems Medical Problems: (1) Chest pain Status: Acute Problems: Comment Review of Relevant I have reviewed the following items neftaly (where applicable) has been applied. Labs Laboratory Tests Test 07/30/16 16:00 07/30/16 23:23 07/31/16 05:20 White Blood Count 7.0x10^3/uL (4.0-11.0) 6.5x10^3/uL (4.0-11.0) Red Blood Count 4.27x10^6/uL (3.50-5.40) 4.52x10^6/uL (3.50-5.40) Hemoglobin 12.4g/dL (12.0-15.5) 13.2g/dL (12.0-15.5) Hematocrit 37.4% (36.0-47.0) 38.6% (36.0-47.0) Mean Corpuscular Volume 88fL (79-100) 86fL (79-100) Mean Corpuscular Hemoglobin 29pg (25-35) 29pg (25-35) Mean Corpuscular Hemoglobin Concent 33g/dL (31-37) 34g/dL (31-37) Red Cell Distribution Width 14.6% (11.5-14.5) 14.3% (11.5-14.5) Platelet Count 176x10^3/uL (140-400) 188x10^3/uL (140-400) Neutrophils (%) (Auto) 68% (31-73) 54% (31-73) Lymphocytes (%) (Auto) 18% (24-48) 30% (24-48) Monocytes (%) (Auto) 6% (0-9) 6% (0-9) Eosinophils (%) (Auto) 7% (0-3) 9% (0-3) Basophils (%) (Auto) 1% (0-3) 1% (0-3) Neutrophils # (Auto) 4.7x10^3uL (1.8-7.7) 3.5x10^3uL (1.8-7.7) Lymphocytes # (Auto) 1.3x10^3/uL (1.0-4.8) 1.9x10^3/uL (1.0-4.8) Monocytes # (Auto) 0.4x10^3/uL (0.0-1.1) 0.4x10^3/uL (0.0-1.1) Eosinophils # (Auto) 0.5x10^3/uL (0.0-0.7) 0.6x10^3/uL (0.0-0.7) Basophils # (Auto) 0.1x10^3/uL (0.0-0.2) 0.1x10^3/uL (0.0-0.2) Sodium Level 140mmol/L (136-145) 143mmol/L (136-145) Potassium Level 3.4mmol/L (3.5-5.1) 4.4mmol/L (3.5-5.1) Chloride Level 102mmol/L (98-107) 106mmol/L (98-107) Carbon Dioxide Level 26mmol/L (21-32) 28mmol/L (21-32) Anion Gap 12 (6-14) 9 (6-14) Blood Urea Nitrogen 18mg/dL (7-20) 18mg/dL (7-20) Creatinine 0.9mg/dL (0.6-1.0) 0.8mg/dL (0.6-1.0) Estimated GFR (Cockcroft-Gault) 60.4 69.2 Glucose Level 152mg/dL (70-99) 86mg/dL (70-99) Calcium Level 8.9mg/dL (8.5-10.1) 9.1mg/dL (8.5-10.1) Troponin I Quantitative < 0.017ng/mL (0.000-0.055) < 0.017ng/mL (0.000-0.055) < 0.017ng/mL (0.000-0.055) Medications Current Medications Ondansetron HCl (Zofran) 4 mg PRN Q8HRS PRN IV NAUSEA/VOMITING; Start 07/30/16 at 17:30; Stop 07/31/16 at 08:14; Status DC Nitroglycerin (Nitrostat) 0.4 mg PRN Q5MIN PRN SL CHEST PAIN; Start 07/30/16 at 17:30; Stop 07/31/16 at 08:14; Status DC Nitroglycerin (Nitrostat) 0.4 mg PRN Q5MIN PRN SL CHEST PAIN; Start 07/30/16 at 17:30 Acetaminophen (Tylenol) 325 mg PRN Q6HRS PRN PO MILD PAIN / TEMP; Start at 20:15; Stop 07/31/16 at 08:15; Status DC Acetaminophen/ Hydrocodone Bitart (Lortab 5/325) 1 tab PRN Q6HRS PRN PO MODERATE TO SEVERE PAIN Last administered on 07/31/16 18:56; Start 07/30/16 at 20:15 Hydralazine HCl (Apresoline) 10 mg PRN Q4HRS PRN IVP ELEVATED BP, SEE COMMENTS Last administered on 07/31/16 20:27; Start 07/30/16 at 20:15 Ondansetron HCl (Zofran) 4 mg PRN Q8HRS PRN IV NAUSEA/VOMITING Last administered on 08/01/16 05:58; Start 07/30/16 at 20:15 Albuterol Sulfate (Ventolin Neb Soln) 2.5 mg PRN Q4HRS PRN NEB SHORTNESS OF BREATH; Start 07/30/16 at 20:15 Potassium Chloride (Klor-Con) 20 meq 1X ONCE PO Last administered on 21:00; Start 07/30/16 at 21:00; Stop 07/30/16 at 21:01; Status DC Metoprolol Succinate (Toprol Xl) 50 mg 1X ONCE PO Last administered on 21:31; Start 07/30/16 at 21:00; Stop 07/30/16 at 21:01; Status DC Flecainide Acetate (Tambocor) 100 mg 1X ONCE PO Last administered on 21:32; Start 07/30/16 at 21:00; Stop 07/30/16 at 21:01; Status DC Sertraline HCl (Zoloft) 200 mg 1X ONCE PO Last administered on 07/30/16 21:31 ; Start 07/30/16 at 21:00; Stop 07/30/16 at 21:01; Status DC Atorvastatin Calcium (Lipitor) 20 mg 1X ONCE PO Last administered on 21:30; Start 07/30/16 at 21:00; Stop 07/30/16 at 21:01; Status DC Rivaroxaban (Xarelto) 20 mg 1X ONCE PO Last administered on 07/30/16 21:31; Start 07/30/16 at 21:00; Stop 07/30/16 at 21:01; Status DC Acetaminophen (Tylenol) 500 mg PRN TID PRN PO PAIN; Start 07/31/16 at 08:15 Fluticasone Propionate (Flonase) 2 spray PRN DAILY PRN NS ALLERGIES; Start 05/06 at 08:15 Furosemide (Lasix) 20 mg DAILY PO Last administered on 08/01/16 09:35; Start 07/31/16 at 09:00 Lisinopril (Prinivil) 40 mg DAILY PO Last administered on 08/01/16 09:35; Start 07/31/16 at 09:00 Metoprolol Succinate (Toprol Xl) 25 mg DAILY PO Last administered on 08/01/16 09:35; Start 07/31/16 at 09:00 Rivaroxaban (Xarelto) 20 mg DAILY PO ; Start 07/31/16 at 09:00; Stop 07/31/16 at 12:19; Status DC Calcium Carbonate/ Glycine (Oscal) 500 mg DAILY PO Last administered on 09:34; Start 07/31/16 at 09:00 Vitamin D (Vitamin D3) 1,000 unit DAILY PO Last administered on 08/01/16 09:34 ; Start 07/31/16 at 09:00 Flecainide Acetate (Tambocor) 100 mg QHS PO Last administered on 07/31/16 21: 40; Start 07/31/16 at 21:00 Flecainide Acetate (Tambocor) 50 mg DAILY PO Last administered on 08/01/16 09: 37; Start 07/31/16 at 09:00 Cetirizine HCl (Zyrtec) 10 mg DAILY PO Last administered on 08/01/16 09:37; Start 07/31/16 at 09:00 Atorvastatin Calcium (Lipitor) 5 mg DAILY PO ; Start 07/31/16 at 09:00; Stop 05/06 at 12:18; Status DC Sertraline HCl (Zoloft) 100 mg BID PO Last administered on 07/31/16 10:17; Start 07/31/16 at 09:00; Stop 07/31/16 at 12:19; Status DC Temazepam (Restoril) 15 mg PRN QHS PRN PO INSOMNIA Last administered on 21:39; Start 07/31/16 at 10:15 Amlodipine Besylate (Norvasc) 10 mg DAILY PO Last administered on 08/01/16 09: 36; Start 08/01/16 at 09:00 Amlodipine Besylate (Norvasc) 10 mg 1X ONCE PO Last administered on 07/31/16 12:58; Start 07/31/16 at 10:45; Stop 07/31/16 at 10:46; Status DC Atorvastatin Calcium (Lipitor) 5 mg QHS PO Last administered on 07/31/16 21:39 ; Start 07/31/16 at 21:00 Rivaroxaban (Xarelto) 20 mg DAILYWSUP PO Last administered on 07/31/16 18:14; Start 07/31/16 at 17:00 Sertraline HCl (Zoloft) 100 mg BID PO Last administered on 08/01/16 09:36; Start 07/31/16 at 21:00 Active Scripts Active Reported Flecainide Acetate 100 Mg Tablet 50 Mg PO DAILY Lasix (Furosemide) 20 Mg Tablet 1 Tab PO DAILY Metoprolol Succinate ( Xl ) (Metoprolol Succinate) 25 Mg Tab.er.24h 2 Tab PO DAILY Acetaminophen 500 Mg Tablet 1 Tab PO PRN TID PRN Zoloft (Sertraline Hcl) 100 Mg Tablet 2 Tab PO BID Flecainide Acetate 100 Mg Tablet 1 Tab PO HS Fluticasone Propionate Nasal Murphys (Fluticasone Propionate) 16 Gm Murphys.susp 2 [place]phys NS DAILY PRN Vitamin D3 (Cholecalciferol (Vitamin D3)) 400 Unit/1 Ml Drops 800 Unit PO DAILY Calcium (Calcium Carbonate) 600 Mg Tablet 600 Mg PO DAILY Lisinopril 40 Mg Tablet 1 Tab PO DAILY Loratadine 10 Mg Tablet 1 Tab PO DAILY Xarelto (Rivaroxaban) 10 Mg Tablet 20 Mg PO DAILY Lovastatin 20 Mg Tablet 1 Tab PO DAILY Vitals/I & O Vital Sign - Last 24 Hours 07/31/16 07/31/16 07/31/16 07/31/16 11:20 12:58 15:00 18:56 Temp 97.9 97.9 Pulse 62 58 Resp 22 18 B/P 148/79 175/86 Pulse Ox 96 96 96 O2 Delivery Room Air Room Air 07/31/16 07/31/16 07/31/16 07/31/16 19:56 20:00 20:00 20:27 Temp 97.8 97.8 Pulse 60 67 Resp 14 20 B/P 223/119 223/119 Pulse Ox 96 O2 Delivery Room Air Room Air Room Air 07/31/16 07/31/16 08/01/16 08/01/16 21:40 22:56 02:37 09:35 Temp 97.8 98.3 97.8 98.3 Pulse 63 63 73 73 Resp 18 20 B/P 140/78 131/63 158/63 145/65 Pulse Ox 96 94 O2 Delivery Room Air Room Air 08/01/16 08/01/16 08/01/16 09:35 09:36 09:37 Pulse 73 73 73 B/P 158/63 145/65 145/65 Intake and Output 07/31/16 07/31/16 08/01/16 15:00 23:00 07:00 Intake Total 240 ml 660 ml Balance 240 ml 660 ml BRIAN CALLAHAN MD Aug 01, 2016 11:17
[2016-08-01] MEDS ORDERED: ACETAMINOPHEN 325 MG TABLET. PO PRN (13:00)
[2016-08-01 15:00] VITALS: BP 110/62
== END 2016-08-01 15:45 | disposition home or self-care (01) | DRG 880 ==
LOC: ER 15:34 → 2 NORTH 17:13
PROVIDERS: ADMIT Internal Medicine; ATTEND Internal Medicine
DX: F41.9 Anxiety disorder, unspecified (principal); E78.5 Hyperlipidemia, unspecified; E78.00 Pure hypercholesterolemia, unspecified; I48.0 Paroxysmal atrial fibrillation; I48.2 Chronic atrial fibrillation; J30.9 Allergic rhinitis, unspecified; R07.89 Other chest pain; I11.0 Hypertensive heart disease with heart failure; Z80.41 Family history of malignant neoplasm of ovary; Z80.8 Family history of malignant neoplasm of other organs or systems; Z82.49 Family history of ischemic heart disease and other diseases of the circulatory system; Z83.3 Family history of diabetes mellitus; Z90.49 Acquired absence of other specified parts of digestive tract; Z90.710 Acquired absence of both cervix and uterus; Z88.0 Allergy status to penicillin; Z88.2 Allergy status to sulfonamides; Z91.040 Latex allergy status
CPT/HCPCS: 36415; 71010; 80048; 82947; 84484; 85027; 93005; 94250; 94760; J0360; J2405; 99285-25

== ENCOUNTER → 2016-10-01 | Outpatient (CLI) | payer MEDICARE ==
--- NOTE | 2016-10-01 16:12 | RAD ---
APPROVED REPORT Patient Location: OUT-PATIENT Exam Type: Ankle to Brachial Index Risk Factors Hypertension Pressures/Indices RightABI LeftABI Brachial 136mmHgBrachial 142mmHg Ankle(PT) 134djBa6.13Ankle(PT) 132tnUa5.16 Findings No evidence of significant high grade disease based on above JODIE. Critical Notification Critical Value: No <Conclusion> Normal JODIE
--- NOTE | 2016-10-01 16:14 | RAD ---
APPROVED REPORT Patient Location: OUT-PATIENT Indications Uncontrolled HTN Renal Artery Doppler Right Renal Artery Left Renal Arter y Proximal 169.2/38.2 cm/secProximal 140.1/21.7 cm/sec Mid 120.8/29.4 cm/secMid 117.0/33.6 cm/sec Distal 84.0/23.1 cm/secDistal 106.3/24.5 cm/sec Renal/Aorta Ratio 2.01Renal/Aorta Ratio 1.70 Prox. Resistive Index 0.77Prox. Resistive Index 0.85 Mid Resistive Index 0.76Mid Resistive Index 0.71 Distal Resistive Index 0.71Distal Resistive Index 0.77 Aortic Doppler VelocityWaveform Mid. Aorta 81.8 cm/sec Findings Lo scale images of the bilateral kidneys reveal normal length with the right kidney measuring 9.4 c m and the left kidney measuring 9.5 cm. On the right the proximal renal artery has mildly elevated velocities but the renal to aortic ratios are within normal limits. Resistive indices are within normal limits. Similarly on the left the renal to aortic ratios as well as resistive indices are within normal limits. Peak right renal velocities noted to be 169 cm/s, peak left renal artery velocities at 147 m/s with aortic velocities of 82 cm/s. Critical Notification Critical Value: No <Conclusion> No significant renal artery stenosis bilaterally.
== END | disposition home or self-care (01) ==
LOC: US 14:20
PROVIDERS: ATTEND Internal Medicine Cardiovascular Disease
DX: I10 Essential (primary) hypertension (principal)
CPT/HCPCS: 93922; 93975

== ENCOUNTER 2016-11-19 13:30 | Emergency (ER) | payer BC, MEDICARE ==
[~2016-11-19] VITALS: Ht 165.1 cm; Wt 71.2 kg
[2016-11-19] MEDS ORDERED: IV NORMAL SALINE 1000ML BAG 1,000 ML IV ONE (14:15)
[2016-11-19 14:27] LABS: BASO # 0.1 x10^3/uL (0.0-0.2); BASO % 1 % (0-3); EOS % 8 % (0-3); HEMATOCRIT 37.4 % (36.0-47.0); HEMOGLOBIN 12.6 g/dL (12.0-15.5); LYMPH # 1.1 x10^3/uL (1.0-4.8); LYMPH % 19 % (24-48); MEAN CORPUSCULAR HEMOGLOBIN 30 pg (25-35); MEAN CORPUSCULAR HGB CONC 34 g/dL (31-37); MEAN CORPUSCULAR VOLUME 89 fL (79-100); MONO % 7 % (0-9); NEUT % 65 % (31-73); PLATELET COUNT 161 x10^3/uL (140-400); RED BLOOD COUNT 4.22 x10^6/uL (3.50-5.40); RED CELL DISTRIBUTION WIDTH 13.8 % (11.5-14.5)
[2016-11-19] MEDS ORDERED: RIVA15TA PO (14:37)
--- NOTE | 2016-11-19 14:39 | EKG ---
[facility] [address] [place] [address] Test Date: 2016-11-19 Test Time: 13:50:38 Pat Name: ISRAEL MAC Department: Room: Gender: F [employer]: : [id number] Requested By: EDUARDO SINGH Order Number: [id number] Reading MD: Bridger Orta Measurements Intervals [place] Rate: 57 P: -139 ME: 148 QRS: -25 QRSD: 106 T: 2 QT: 450 QTc: 441 Interpretive Statements SINUS RHYTHM LEFTWARD AXIS T ABNORMALITY IN ANTEROSEPTAL LEADS ABNORMAL ECG RI6.01 Compared to ECG 07/31/2016 09:31:24 T-wave abnormality now present Electronically Signed On 11-24-2016 9:31:47 CDT by Bridger Orta
[2016-11-19 15:02] LABS: INR 1.3 (0.8-1.1); PROTHROMBIN TIME PATIENT 15.8 SEC (11.7-14.0)
[2016-11-19 15:02] LABS: BILIRUBIN,URINE NEGATIVE (NEG); GLUCOSE,URINE NEGATIVE (NEG); NITRITE,URINE NEGATIVE (NEG); PROTEIN,URINE NEGATIVE (NEG-TRACE); UROBILINOGEN,URINE 0.2 mg/dL (0.2 mg/dL)
[2016-11-19 15:04] LABS: CREATININE 0.9 mg/dL (0.6-1.0); GFR 60.4
[2016-11-19 15:08] LABS: ALBUMIN 3.9 g/dL (3.4-5.0); ALBUMIN/GLOBULIN RATIO 1.3 (1.0-1.7); MAGNESIUM 2.1 mg/dL (1.8-2.4); TOTAL BILIRUBIN 0.5 mg/dL (0.2-1.0); TOTAL PROTEIN 6.9 g/dL (6.4-8.2)
[2016-11-19 15:20] LABS: BACTERIA,URINE 0 /HPF (0-FEW); RBC,URINE OCC /HPF (0-2); SQUAMOUS EPITHELIAL CELL,UR FEW /LPF; WBC,URINE OCC /HPF (0-4)
--- NOTE | 2016-11-19 15:21 | PHYS DOC ---
Past Medical History Past Medical History: A-Fib, Arthritis, High Cholesterol, Hypertension Past Surgical History: Appendectomy, Hysterectomy, Tonsillectomy, Other Additional Past Surgical Histo: cardioversion x2 Alcohol Use: Rarely Drug Use: None Adult General Chief Complaint Chief Complaint: Palpitations HPI HPI Patient is a 81 year old female presenting to the emergency department for unclear reasons initially. She says that her primary care physician was unwilling to see her today so she came to the emergency department. I asked her what symptoms she was having as the triage complaint was palpitations but she denied any palpitations chest pain or shortness of breath to me. She says that she feels weak and tired all the time and this is been worse over the past 2 weeks. I asked her if there is anything specifically different and she said that she feels more tired. She denies any nausea vomiting diarrhea and she says that she has been eating and drinking well. She does have history of atrial fibrillation and is on multiple blood pressure medications for rate control and flecainide for rhythm control. She is on Cymbalta also but denies any black or bloody stools. She is in no obvious distress with normal vital signs except mild sinus bradycardia. Review of Systems Review of Systems Constitutional: Denies fever or chills [] Eyes: Denies change in visual acuity, redness, or eye pain [] HENT: Denies nasal congestion or sore throat [] Respiratory: Denies cough or shortness of breath [] Cardiovascular: No additional information not addressed in HPI [] GI: Denies abdominal pain, nausea, vomiting, bloody stools or diarrhea [] : Denies dysuria or hematuria [] Musculoskeletal: Denies back pain or joint pain [] Integument: Denies rash or skin lesions [] Neurologic: Denies headache, focal weakness or sensory changes [] Current Medications Current Medications Current Medications Medications (Trade) Dose Ordered Sig/Darius Start Time Stop Time Status Last Admin Dose Admin Sodium Chloride 1,000 ml @ 1,000 mls/hr 1X ONCE 11/19/16 14:15 11/19/16 15:14 DC 11/19/16 14:18 1,000 MLS/HR Allergies Allergies Allergies Coded Allergies Type Severity Reaction Last Updated Verified Penicillins Allergy Intermediate 12/17/14 Yes Sulfa (Sulfonamide Antibiotics) Allergy Intermediate 12/17/14 Yes latex Allergy Intermediate Rash 01/17/15 Yes Physical Exam Physical Exam Constitutional: Well developed, well nourished, no acute distress, non-toxic appearance. [] HENT: Normocephalic, atraumatic, bilateral external ears normal, oropharynx moist, no oral exudates, nose normal. [] Eyes: PERRLA, EOMI, conjunctiva normal, no discharge. [] Neck: Normal range of motion, no tenderness, supple, no stridor. [] Cardiovascular:Heart rate regular rhythm, no murmur [] Lungs & Thorax: Bilateral breath sounds clear to auscultation [] Abdomen: Bowel sounds normal, soft, no tenderness, no masses, no pulsatile masses. [] Skin: Warm, dry, no erythema, no rash. [] Back: No tenderness, no CVA tenderness. [] Extremities: No tenderness, no cyanosis, no clubbing, ROM intact, no edema. [] Neurologic: Alert and oriented X 3, normal motor function, normal sensory function, no focal deficits noted. [] Current Patient Data Vital Signs Vital Signs Date Time Temp Pulse Resp B/P (MAP) Pulse Ox O2 Delivery O2 Flow Rate FiO2 11/19/16 13:50 98.2 57 22 152/100 (117) 95 Room Air 98.2 Lab Values Laboratory Tests Test 11/19/16 13:44 11/19/16 14:20 Urine Collection Type Unknown Urine Color Yellow Urine Clarity Clear Urine pH 6.0 Urine Specific [place] <=1.005 Urine Protein Negative mg/dL (NEG-TRACE) Urine Glucose (UA) Negative mg/dL (NEG) Urine Ketones (Stick) Negative mg/dL (NEG) Urine Blood Negative (NEG) Urine Nitrite Negative (NEG) Urine Bilirubin Negative (NEG) Urine Urobilinogen Dipstick 0.2 mg/dL (0.2 mg/dL) Urine Leukocyte Esterase Negative (NEG) Urine RBC Occ /HPF (0-2) Urine WBC Occ /HPF (0-4) Urine Squamous Epithelial Cells Few /LPF Urine Bacteria 0 /HPF (0-FEW) White Blood Count 6.0 x10^3/uL (4.0-11.0) Red Blood Count 4.22 x10^6/uL (3.50-5.40) Hemoglobin 12.6 g/dL (12.0-15.5) Hematocrit 37.4 % (36.0-47.0) Mean Corpuscular Volume 89 fL (79-100) Mean Corpuscular Hemoglobin 30 pg (25-35) Mean Corpuscular Hemoglobin Concent 34 g/dL (31-37) Red Cell Distribution Width 13.8 % (11.5-14.5) Platelet Count 161 x10^3/uL (140-400) Neutrophils (%) (Auto) 65 % (31-73) Lymphocytes (%) (Auto) 19 % (24-48) L Monocytes (%) (Auto) 7 % (0-9) Eosinophils (%) (Auto) 8 % (0-3) H Basophils (%) (Auto) 1 % (0-3) Neutrophils # (Auto) 3.9 x10^3uL (1.8-7.7) Lymphocytes # (Auto) 1.1 x10^3/uL (1.0-4.8) Monocytes # (Auto) 0.4 x10^3/uL (0.0-1.1) Eosinophils # (Auto) 0.5 x10^3/uL (0.0-0.7) Basophils # (Auto) 0.1 x10^3/uL (0.0-0.2) Prothrombin Time 15.8 SEC (11.7-14.0) H Prothrombin Time INR 1.3 (0.8-1.1) H PTT 42 SEC (24-38) H Sodium Level 141 mmol/L (136-145) Potassium Level 4.0 mmol/L (3.5-5.1) Chloride Level 102 mmol/L (98-107) Carbon Dioxide Level 29 mmol/L (21-32) Anion Gap 10 (6-14) Blood Urea Nitrogen 17 mg/dL (7-20) Creatinine 0.9 mg/dL (0.6-1.0) Estimated GFR (Cockcroft-Gault) 60.4 BUN/Creatinine Ratio 19 (6-20) Glucose Level 85 mg/dL (70-99) Calcium Level 9.0 mg/dL (8.5-10.1) Magnesium Level 2.1 mg/dL (1.8-2.4) Total Bilirubin 0.5 mg/dL (0.2-1.0) Aspartate Amino Transferase (AST) 14 U/L (15-37) L Alanine Aminotransferase (ALT) 21 U/L (14-59) Alkaline Phosphatase 73 U/L (46-116) Creatine Kinase 35 U/L (26-192) Troponin I Quantitative < 0.017 ng/mL (0.000-0.055) BR-Sal-E-Type Natriuretic Peptide 1630 pg/mL (0-449) H Total Protein 6.9 g/dL (6.4-8.2) Albumin 3.9 g/dL (3.4-5.0) Albumin/Globulin Ratio 1.3 (1.0-1.7) Thyroid Stimulating Hormone (TSH) 2.973 uIU/mL (0.358-3.74) Laboratory Tests 11/19/16 14:20 Laboratory Tests 11/19/16 14:20 EKG EKG Normal sinus rhythm at 57 beats per minutes with leftward axis T wave inversion in leads V1 and V2 V3 but no ST elevation or depression. Radiology/Procedures Radiology/Procedures [] Course & Med Decision Making Course & Med Decision Making I spoke to Dr. Lopez about patient and he said that she usually does have this complaint and he recommended not changing any medications for now but having her keep a log of her blood pressure and pulse and seeing her in clinic next week. Patient and aware and agreeable with plan for discharge and verbalized understanding of the need for short-term follow-up and strict ER return precautions discussed worsening pain shortness of breath or other general concerns. Dragon Disclaimer Dragon Disclaimer This electronic medical record was generated, in whole or in part, using a voice recognition dictation system. Departure Departure Impression: Primary Impression: Generalized weakness Disposition: 01 HOME, SELF-CARE Condition: GOOD Referrals: GAETANO DENISE DO (PCP) ELVIRA LOPEZ MD Patient Instructions: Weakness Additional Instructions: CALL TO GET AN APPOINTMENT WITH DR. LOPEZ FOR NEXT WEEK. COME BACK TO THE ED SOONER WITH ANY NEW OR WORSENING PAIN, SOA, OR OTHER GENERAL CONCERNS. EDUARDO SINGH DO Nov 19, 2016 15:21
[2016-11-19 16:15] VITALS: BP 154/72
== END 2016-11-19 16:29 | disposition home or self-care (01) ==
LOC: ER 13:30
DX: R53.1 Weakness (principal); R00.2 Palpitations; I48.91 Unspecified atrial fibrillation; M19.90 Unspecified osteoarthritis, unspecified site; E78.00 Pure hypercholesterolemia, unspecified; I10 Essential (primary) hypertension; Z90.710 Acquired absence of both cervix and uterus; Z90.49 Acquired absence of other specified parts of digestive tract; Z88.2 Allergy status to sulfonamides; Z88.0 Allergy status to penicillin; Z91.040 Latex allergy status
CPT/HCPCS: 36415; 80053; 81001; 82550; 83735; 83880; 84443; 84484; 85027; 85610; 85730; 93005; 96360; 96361; 99285; J7030

== ENCOUNTER → 2016-12-16 | Outpatient (CLI) | payer BC ==
[2016-11-19 16:15] VITALS: BP 154/72
[~2016-12-16] MED LIST changes: +RIVA15TA PO
--- NOTE | 2016-12-16 14:32 | KCIC ---
MRI of the lumbar spine without contrast 12/16/2016 CLINICAL HISTORY: Low back pain and bilateral leg weakness. TECHNIQUE: Unenhanced T1-weighted and T2-weighted sagittal and axial and sagittal images of the lumbar spine were obtained. Findings: Minimal S-shaped curvature of the thoracolumbar spine is seen. Degenerative signal changes are seen involving all of the disks of the lumbar spine. Loss of height at L4-5 and L5-S1 discs is noted. Degenerative signal changes are seen within the marrow surrounding these discs. The conus medullaris morphology, position, and signal characteristics. The L1-2 disc space is within normal limits. At the L2-3 disc space there is a mild to moderate generalized disc bulge. This is eccentric to the left. Degenerative changes are seen involving the facet joints bilaterally. There is moderate ligamentum flavum hypertrophy bilaterally. These findings when combined do not result in significant central spinal canal or neural foraminal stenosis. At the L3-4 disc space there is a mild generalized disc bulge. Degenerative changes are seen involving the facet joints bilaterally. There is moderate ligamentum flavum hypertrophy bilaterally. These findings when combined do not result in significant central spinal canal or neural foraminal stenosis. At the L4-5 disc space there is a moderate generalized disc bulge. This is eccentric to the right. Degenerative changes are seen involving the facet joints bilaterally. There is moderate ligamentum flavum hypertrophy bilaterally. These findings when combined result in mild central spinal canal stenosis. Moderate right neural foraminal stenosis is seen. The left neural foramen is patent. At the L5-S1 disc space there is a moderate generalized disc bulge. This is eccentric to the left. Degenerative changes are seen involving the facet joints bilaterally. There is mild ligamentum flavum hypertrophy bilaterally. These findings when combine result in mild left greater than right central spinal canal stenosis. Mild to moderate left greater than right neural foraminal stenosis is seen. IMPRESSION: The changes of degenerative disc disease are seen involving the lumbar spine. These findings result in mild central spinal canal stenosis at L4-5 and mild left greater than right central spinal canal stenosis at L5-S1. Moderate right neural foraminal stenosis is seen at L4-5. Mild to moderate left greater than right neural foraminal stenosis is seen at L5-S1. Electronically signed by: Pantera Graham MD (12/16/2016 2:28 PM)
== END | disposition home or self-care (01) ==
LOC: KCIC MRI 12:55
PROVIDERS: ATTEND Orthopaedic Surgery
DX: M51.36 Other intervertebral disc degeneration, lumbar region (principal); M48.06 Spinal stenosis, lumbar region
CPT/HCPCS: 72148

== ENCOUNTER → 2017-02-15 | Outpatient (CLI) | payer BC ==
[~2017-02-15] MED LIST changes: +GADOBUTROL 7.5 MMOL/7.5 ML VIAL IV ONE
--- NOTE | 2017-02-15 16:26 | RAD ---
MRI Brain with and without contrast History: Dizziness, unsteady gait, left-sided hearing loss Technique: Multiplanar, multi sequential pre and postcontrast MR imaging was performed of the brain. Contrast: 7 cc Gadavist Comparison: None Findings: There is no evidence of recent infarct or cytotoxic edema. Ventricular size is within normal limits. There is mild supratentorial atrophy more greatly affecting the parietal lobes.There is no significant midline shift, intraaxial mass effect, or focal abnormal extra-axial fluid collection. There is no significant signal abnormality of the brain parenchyma. There is no nodular parenchymal or leptomeningeal enhancement. There is preservation of the major intracranial flow-voids at the skull base. The cerebellar tonsils are normal in location. There is no significant abnormality of the pineal gland or small pituitary gland. There is near complete opacification of the left maxillary sinus apparently with air-fluid level. There is minimal right maxillary sinus mucosal thickening. There is moderate to severe ethmoid air cell mucosal thickening greater anteriorly, mild frontal sinus and sphenoid sinus mucosal thickening present. There has been lens surgery bilaterally. There is mild patchy fluid and thickening of the left mastoid air cells, right mastoid air cells aerated. There is preserved marrow signal of the clivus. There is no enhancing mass of the cerebellopontine angles or internal auditory canals. Impression: 1. There is no evidence of recent infarct or abnormal intracranial enhancement. 2. There is near complete opacification of the left maxillary sinus with probable air-fluid level which may be due to acute sinusitis, also moderate to severe ethmoid air cell mucosal thickening. There is minimal patchy fluid of the left mastoid air cells. 3. There is mild supratentorial atrophy more greatly affecting parietal lobes. Electronically signed by: Jose Negrete MD (02/15/2017 4:22 PM) [id number]
== END | disposition home or self-care (01) ==
LOC: MRI 14:09
PROVIDERS: ATTEND Otolaryngology
DX: H91.92 Unspecified hearing loss, left ear (principal); R42 Dizziness and giddiness
CPT/HCPCS: 70553; A9585

== ENCOUNTER → 2017-03-14 | Outpatient (CLI) | payer BC ==
[~2017-03-14] MED LIST changes: -GADOBUTROL 7.5 MMOL/7.5 ML VIAL IV ONE; +METO-239 PO; -METO25TA9 PO
--- NOTE | 2017-03-14 12:31 | KCIC ---
CT of the paranasal sinuses HISTORY: Chronic sinusitis. TECHNIQUE: Standard noncontrast imaging. COMPARISON: None FINDINGS: Mild bilateral ethmoid sinus mucosal thickening. Minimal mucosal thickening of the right sphenoid sinus. Maxillary and frontal sinuses are clear. No fluid levels are identified. Ostiomeatal units are patent bilaterally. No evidence of aggressive bone destruction. IMPRESSION: Minimal to mild right sphenoid and bilateral ethmoid sinus mucosal thickening. Electronically signed by: Roc Amin MD (03/14/2017 12:28 PM) [id number]
== END | disposition home or self-care (01) ==
LOC: KCIC CT 09:54
PROVIDERS: ATTEND Otolaryngology
DX: J32.9 Chronic sinusitis, unspecified (principal)
CPT/HCPCS: 70486

== ENCOUNTER 2017-08-08 10:53 | Day surgery (SDC) | payer BC, OTHER ==
[~2017-08-08 10:53] MED LIST changes: -ACET500T33 PO; -ACET500T68 PO; -AMIO200T2 PO; -AMIT25TA PO; -AMLO10TA2 PO; -CALC-30 PO; -CALC600T4 PO; -CETI10TA30 PO; -CHOL400D8 PO; -FLEC100T PO; -FLUT16SP NS; -FURO-69 PO; +HYDROmorphone 2 MG/ML VIAL IV; -LISI-334 PO; -LISI40TA PO; -LORA10TA3 PO; -LOVA20TA2 PO; -METO-239 PO; -METO-269 PO; +MORPHINE SULFATE 2 MG/ML DISP.SYRIN. IV; +ONDANSETRON PF 4 MG/2 ML VIAL. IV; -RIVA10TA PO; -RIVA15TA PO; -SERT100T PO
[2017-08-08] MEDS ORDERED: PROPOFOL 20 ML IV (11:11)
[2017-08-08] MEDS ORDERED: ROCURONIUM 50 MG/5 ML VIAL. (11:11)
[2017-08-08] MEDS ORDERED: LIDOCAINE 2% PF Vial for OR 5 ML VIAL. (11:11)
[2017-08-08] MEDS ORDERED: fentaNYL PF VIAL 100 MCG/2 ML VIAL ×2 (11:11→16:49)
[2017-08-08] MEDS: IV RINGERS,LACTATED 1000ML 1,000 ML IV (11:29)
[2017-08-08] MEDS ORDERED: MUPIROCIN 2 % NASAL OINTMENT 22GM TUBE. NS (12:15)
[2017-08-08] MEDS ORDERED: OXYMETAZOLINE 0.05% NASAL SPRAY 30ML BOTTLE. NS (12:15)
[2017-08-08] MEDS ORDERED: PHENYLEPHRINE 0.25% NASAL SPRAY 15ML BOTTLE. NS (12:16)
[2017-08-08] MEDS ORDERED: TRIAMCINOLONE ACETONIDE 40 MG/ML VIAL. IM (12:30)
[2017-08-08] MEDS ORDERED: NEOSTIGMINE METHYLSULFATE 5 MG/5 ML SYRINGE. (14:00)
[2017-08-08] MEDS ORDERED: GLYCOPYRROLATE 1 MG/5 ML VIAL. (14:00)
[2017-08-08] MEDS ORDERED: ONDANSETRON PF 4 MG/2 ML VIAL. (14:00)
[2017-08-08] MEDS ORDERED: DEXAMETHASONE SOD PHOS 20 MG/5 ML VIAL. (14:00)
[2017-08-08] MEDS ORDERED: SEVOFLURANE > 120 MINUTES. IH (14:59)
[2017-08-08] MEDS: fentaNYL PF VIAL 100 MCG/2 ML VIAL IV ×2 (16:54→17:27)
[2017-08-08] MEDS: LIDOCAINE 1% PF 2 ML VIAL. ID (16:56)
[2017-08-08] MEDS: oxyCODONE/APAP 5/325 1 TAB TABLET PO (18:00)
[2017-08-08] MEDS: LIDOCAINE 1%/EPI 1:100,000 20 ML VIAL. (18:08)
[2017-08-08] MEDS: EPINEPHrine VIAL 30 MG/30 ML VIAL (18:08)
[2017-08-08] MEDS ORDERED: PROCHLORPERAZINE 10 MG/2 ML VIAL. (18:25)
[2017-08-08] MEDS: PROCHLORPERAZINE 10 MG/2 ML VIAL. IV (18:27)
== END 2017-08-08 18:50 | disposition home or self-care (01) ==
LOC: SURG 10:53
DX: J32.4 Chronic pansinusitis (principal); J34.2 Deviated nasal septum; J34.3 Hypertrophy of nasal turbinates; E78.00 Pure hypercholesterolemia, unspecified; I48.91 Unspecified atrial fibrillation; J45.909 Unspecified asthma, uncomplicated; F32.9 Major depressive disorder, single episode, unspecified; F17.200 Nicotine dependence, unspecified, uncomplicated; Z88.0 Allergy status to penicillin; Z98.890 Other specified postprocedural states; Z98.41 Cataract extraction status, right eye; Z98.42 Cataract extraction status, left eye; Z87.39 Personal history of other diseases of the musculoskeletal system and connective tissue; Z88.2 Allergy status to sulfonamides; Z91.040 Latex allergy status
CPT/HCPCS: 30520; 87071; 87075; 87186; 87205; C1713; C1769; J0171; J0780; J1100; J1956; J2405; J2704; J2710; J3010; J3301; J3490

== ENCOUNTER → 2017-08-10 | Outpatient (CLI) | payer BC | END | disposition home or self-care (01) | LOC: KCIC 16:06 | DX: R06.00 Dyspnea, unspecified (principal); Z98.890 Other specified postprocedural states | CPT/HCPCS: 71046 ==

== ENCOUNTER → 2017-12-20 | Day surgery (SDC) | payer BC ==
[~2017-12-20] MED LIST changes: +0.9 % SODIUM CHLORIDE 10 ML DISP.SYRIN. IV; +BENZOCAINE ONE 20% MUCOSAL SPRAY.; -HYDROmorphone 2 MG/ML VIAL IV; +LIDOCAINE 1% PF 2 ML VIAL. ID; +LIDOCAINE 2% PF Vial for OR 5 ML VIAL.; +LIDOCAINE 2% TOPICAL JELLY 5GM TUBE. TP; +LIDOCAINE 2% VISCOUS 15 ML SOLUTION.; +PROCHLORPERAZINE 10 MG/2 ML VIAL. IV; +PROPOFOL 10 MG/ML (20ML) VIAL. IV; +PROPOFOL 20 ML IV; +fentaNYL PF VIAL 100 MCG/2 ML VIAL IV
[2017-12-20] MEDS: IV RINGERS,LACTATED 1000ML 1,000 ML IV (14:07)
[2017-12-20 14:33] LABS: ANION GAP 8 (6-14); BLOOD UREA NITROGEN 15 mg/dL (7-20); CALCIUM 8.8 mg/dL (8.5-10.1); CARBON DIOXIDE 26 mmol/L (21-32); CHLORIDE 103 mmol/L (98-107); CREATININE 0.9 mg/dL (0.6-1.0); GFR 60.2; GLUCOSE 102 mg/dL (70-99); MAGNESIUM 1.9 mg/dL (1.8-2.4); POTASSIUM 3.9 mmol/L (3.5-5.1); SODIUM 137 mmol/L (136-145)
[2017-12-20] MEDS: LIDOCAINE 2% VISCOUS 15 ML SOLUTION. SWSW (14:40)
[2017-12-20] MEDS: BENZOCAINE ONE 20% MUCOSAL SPRAY. MM (14:41)
[2017-12-20] MEDS: LIDOCAINE 2% TOPICAL JELLY 5GM TUBE. TP (14:42)
== END | disposition home or self-care (01) ==
LOC: SURG 13:14
DX: I34.0 Nonrheumatic mitral (valve) insufficiency (principal); I48.91 Unspecified atrial fibrillation; Z88.0 Allergy status to penicillin; Z88.1 Allergy status to other antibiotic agents; Z88.8 Allergy status to other drugs, medicaments and biological substances; Z91.040 Latex allergy status; Z98.42 Cataract extraction status, left eye; Z98.41 Cataract extraction status, right eye; Z96.1 Presence of intraocular lens; K08.409 Partial loss of teeth, unspecified cause, unspecified class; E78.00 Pure hypercholesterolemia, unspecified; Z98.890 Other specified postprocedural states; I10 Essential (primary) hypertension; J45.909 Unspecified asthma, uncomplicated; Z90.49 Acquired absence of other specified parts of digestive tract; Z90.710 Acquired absence of both cervix and uterus; M19.90 Unspecified osteoarthritis, unspecified site; F32.9 Major depressive disorder, single episode, unspecified; F17.200 Nicotine dependence, unspecified, uncomplicated
CPT/HCPCS: 36415; 80048; 83735; 92960; 93005; 93312; 93325; J2001; J2704

== ENCOUNTER 2018-09-24 14:00 | Emergency (ER) | payer BC, OTHER ==
[~2018-09-24] VITALS: Ht 165.1 cm; Wt 71.2 kg
[~2018-09-24 14:00] MED LIST changes: -0.9 % SODIUM CHLORIDE 10 ML DISP.SYRIN. IV; +ACET500T33 PO; +ACET500T68 PO; +ALPR0.254 PO; +AMIO200T4 PO; +AMIT25TA PO; +AMLO10TA8 PO; -BENZOCAINE ONE 20% MUCOSAL SPRAY.; +CA C1TAB62 PO; +CALC-30 PO; +CALC-496 PO; +CALC-77 PO; +CALC600T4 PO; +CETI10TA16 PO; +CETI10TA30 PO; +CHOL100013 PO; +CHOL400D8 PO; +DICL50TA4 PO; +DOCU-109 PO; +FLEC100T PO; +FLUT16SP NS; +FURO-69 PO; +GLUC100018 PO; +LEVO500T59 PO; -LIDOCAINE 1% PF 2 ML VIAL. ID; -LIDOCAINE 2% PF Vial for OR 5 ML VIAL.; -LIDOCAINE 2% TOPICAL JELLY 5GM TUBE. TP; -LIDOCAINE 2% VISCOUS 15 ML SOLUTION.; +LISI-130 PO; +LISI-334 PO; +LORA10TA3 PO; +LOVA20TA2 PO; +METH4TAB2 PO; +METO-239 PO; +METO-269 PO; -MORPHINE SULFATE 2 MG/ML DISP.SYRIN. IV; +OMEG1CAP27 PO; +ONDA4TAB10 SL; -ONDANSETRON PF 4 MG/2 ML VIAL. IV; +OXYC1TAB15 PO; +OXYM15MI4 NS; +PRED20TA PO; +PROAIR RESPICL90 MCG IH; -PROCHLORPERAZINE 10 MG/2 ML VIAL. IV; -PROPOFOL 10 MG/ML (20ML) VIAL. IV; -PROPOFOL 20 ML IV; +RIVA10TA PO; +RIVA15TA PO; +RIVA20TA2 PO; +SERT100T PO; +VENTOLIN HFA18 GM INH; -fentaNYL PF VIAL 100 MCG/2 ML VIAL IV
[2018-09-24] MEDS ORDERED: METOPROLOL SUCC 24HR ER 25 MG TAB.ER.24H. PO STA (14:33)
[2018-09-24 14:40] LABS: BASO # 0.1 x10^3/uL (0.0-0.2); BASO % 2 % (0-3); EOS # 0.2 x10^3/uL (0.0-0.7); EOS % 4 % (0-3); HEMATOCRIT 37.5 % (36.0-47.0); HEMOGLOBIN 12.6 g/dL (12.0-15.5); LYMPH # 1.2 x10^3/uL (1.0-4.8); LYMPH % 17 % (24-48); MEAN CORPUSCULAR HEMOGLOBIN 28 pg (25-35); MEAN CORPUSCULAR HGB CONC 34 g/dL (31-37); MEAN CORPUSCULAR VOLUME 84 fL (79-100); MONO # 0.4 x10^3/uL (0.0-1.1); MONO % 6 % (0-9); NEUT # 5.1 x10^3uL (1.8-7.7); NEUT % 72 % (31-73); PLATELET COUNT 231 x10^3/uL (140-400); RED BLOOD COUNT 4.45 x10^6/uL (3.50-5.40); RED CELL DISTRIBUTION WIDTH 17.5 % (11.5-14.5); WHITE BLOOD COUNT 7.1 x10^3/uL (4.0-11.0)
[2018-09-24 14:52] LABS: CALCIUM 8.8 mg/dL (8.5-10.1); CREATININE 0.9 mg/dL (0.6-1.0); GFR 60.1; POTASSIUM 3.8 mmol/L (3.5-5.1)
[2018-09-24 15:25] VITALS: BP 135/71
--- NOTE | 2018-09-24 15:30 | PHYS DOC ---
Past Medical History Past Medical History: AIDS, Anxiety, Depression, Heart Disease, Hypertension Past Surgical History: Hysterectomy Additional Past Surgical Histo: cardioversion x2 Alcohol Use: None Drug Use: None Adult General Chief Complaint Chief Complaint: SHORTNESS OF BREATH HPI HPI Patient is a 83 year old female who presents the ER for evaluation. Patient states that she has had onset of palpitations since this morning. Patient states that it is her "A. fib". Patient does have history of paroximal A. fib. She is on flecainide and metoprolol. Patient has history of intolerance to up titration of these medications secondary to bradycardia. Patient also status post pacemaker placement March 2018. Patient states that she is not a candidate for ablation. Patient is on Xarelto compliance for the last 2 weeks with no missed doses. Patient states that she's been told by her gold leaf gilder that she cannot be cardioverted anymore although she does not give any clear indication. Patient denies any chest pain, shortness of breath, dyspnea, lightheadedness, dizziness. Review of Systems Review of Systems Constitutional: Denies fever or chills [] HENT: Denies nasal congestion or sore throat [] Respiratory: Denies cough or shortness of breath [] Cardiovascular: No chest pain, no orthopnea, no lower extremity edema, palpitations present. GI: Denies abdominal pain, nausea, vomiting, bloody stools or diarrhea [] : Denies dysuria or hematuria [] Musculoskeletal: Denies back pain or joint pain [] Integument: Denies rash or skin lesions [] Neurologic: Denies headache, focal weakness or sensory changes [] Endocrine: Denies polyuria or polydipsia [] All other systems were reviewed and found to be within normal limits, except as documented in this note. Current Medications Current Medications Current Medications Medications (Trade) Dose Ordered Sig/Darius Start Time Stop Time Status Last Admin Dose Admin Metoprolol Succinate (Toprol Xl) 50 mg 1X STAT 09/24/18 14:33 09/24/18 14:40 DC 09/24/18 14:45 50 MG Allergies Allergies Allergies Coded Allergies Type Severity Reaction Last Updated Verified Penicillins Allergy Intermediate Rash 12/19/17 Yes Sulfa (Sulfonamide Antibiotics) Allergy Intermediate Rash 12/19/17 Yes lactose Allergy Intermediate 12/19/17 Yes latex Allergy Intermediate Rash 12/19/17 Yes lovastatin Adverse Reaction Intermediate leg pain/off balance 12/19/17 Yes Physical Exam Physical Exam Constitutional: Well developed, well nourished, no acute distress, non-toxic appearance. [] HENT: Normocephalic, atraumatic Eyes: PERRLA, EOMI, conjunctiva normal, no discharge. [] Neck: JVD, no stridor. Cardiovascular: Irregularly irregular heart rhythm with mild tachycardia, +2 radial pulses bilaterally. No murmur. Lungs & Thorax: Bilateral breath sounds clear to auscultation [] Abdomen: Bowel sounds normal, soft, no tenderness, no masses, no pulsatile masses. [] Skin: Warm, dry, no erythema, no rash. [] Extremities: ROM intact, no edema. [] Neurologic: Alert and oriented X 3, no focal deficits noted. [] Psychologic: Affect normal, judgement normal, mood normal. [] Current Patient Data Vital Signs Vital Signs Date Time Temp Pulse Resp B/P (MAP) Pulse Ox O2 Delivery O2 Flow Rate FiO2 09/24/18 14:45 101 122/65 09/24/18 14:40 16 97 Nasal Cannula 3.0 09/24/18 14:10 98.2 98.2 Lab Values Laboratory Tests Test 09/24/18 14:20 White Blood Count 7.1 x10^3/uL (4.0-11.0) Red Blood Count 4.45 x10^6/uL (3.50-5.40) Hemoglobin 12.6 g/dL (12.0-15.5) Hematocrit 37.5 % (36.0-47.0) Mean Corpuscular Volume 84 fL (79-100) Mean Corpuscular Hemoglobin 28 pg (25-35) Mean Corpuscular Hemoglobin Concent 34 g/dL (31-37) Red Cell Distribution Width 17.5 % (11.5-14.5) H Platelet Count 231 x10^3/uL (140-400) Neutrophils (%) (Auto) 72 % (31-73) Lymphocytes (%) (Auto) 17 % (24-48) L Monocytes (%) (Auto) 6 % (0-9) Eosinophils (%) (Auto) 4 % (0-3) H Basophils (%) (Auto) 2 % (0-3) Neutrophils # (Auto) 5.1 x10^3uL (1.8-7.7) Lymphocytes # (Auto) 1.2 x10^3/uL (1.0-4.8) Monocytes # (Auto) 0.4 x10^3/uL (0.0-1.1) Eosinophils # (Auto) 0.2 x10^3/uL (0.0-0.7) Basophils # (Auto) 0.1 x10^3/uL (0.0-0.2) Sodium Level 137 mmol/L (136-145) Potassium Level 3.8 mmol/L (3.5-5.1) Chloride Level 102 mmol/L (98-107) Carbon Dioxide Level 24 mmol/L (21-32) Anion Gap 11 (6-14) Blood Urea Nitrogen 19 mg/dL (7-20) Creatinine 0.9 mg/dL (0.6-1.0) Estimated GFR (Cockcroft-Gault) 60.1 Glucose Level 192 mg/dL (70-99) H Calcium Level 8.8 mg/dL (8.5-10.1) Troponin I Quantitative < 0.017 ng/mL (0.000-0.055) Laboratory Tests 09/24/18 14:20 Laboratory Tests 09/24/18 14:20 EKG EKG 1414: Heart rate 87, left bundle branch block, atrial fibrillation, heart rate 87.[] Radiology/Procedures Radiology/Procedures [] Course & Med Decision Making Course & Med Decision Making Pertinent Labs and Imaging studies reviewed. (See chart for details) []1530: Patient with compliance oral anticoagulation and presents in A. fib. Patient does have history of proximal A. fib but is more symptomatic at this time with heart rate more consistently in 100s to 120s at times at rest. Patient is a candidate for ED cardioversion secondary to compliance with oral anticoagulation but patient states that she was then told by her gold leaf gilder that she should not be cardioverted anymore. It is unclear why. Patient was given her Fox Toprol dose with improvement of heart rate to 70s to 80s. She remains largely asymptomatic with no supplemental O2 requirement and no chest pain. Discussed with Dr. Nelson child care education coordinator for patient's gold leaf gilder who is agreeable to plan for discharge and will arrange for follow-up tomorrow via clinic. Patient is eager for discharge. Advised continue home medications. ER return precautions given. Patient verbalized understanding. All questions answered. Dragon Disclaimer Dragon Disclaimer This electronic medical record was generated, in whole or in part, using a voice recognition dictation system. Departure Departure Impression: Primary Impression: A-fib Additional Impression: Palpitations Disposition: HOME, SELF-CARE Referrals: GAETANO DENISE DO (PCP) ELVIRA LOPEZ MD Patient Instructions: Atrial Fibrillation, [id number] Additional Instructions: Thank you for coming to [facility]. Please read the attached handouts. Continue home medication. Your cardiology office will call you tomorrow. Please follow-up with your primary care physician. Return to the ER if your symptoms worsen or you have any other concerns. Problem Qualifiers EDGAR IYER DO Sep 24, 2018 15:30
--- NOTE | 2018-09-24 16:57 | EKG ---
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
== END 2018-09-24 15:40 | disposition home or self-care (01) ==
LOC: ER 14:00
DX: R00.2 Palpitations (principal); I48.91 Unspecified atrial fibrillation; I11.9 Hypertensive heart disease without heart failure; F32.9 Major depressive disorder, single episode, unspecified; F41.9 Anxiety disorder, unspecified; Z88.0 Allergy status to penicillin; Z88.2 Allergy status to sulfonamides; Z91.040 Latex allergy status; Z88.8 Allergy status to other drugs, medicaments and biological substances; Z91.011 Allergy to milk products
CPT/HCPCS: 36415; 80048; 84484; 85025; 93005; 99284-25

== ENCOUNTER → 2018-11-17 | Outpatient (CLI) | payer BC, OTHER ==
--- NOTE | 2018-11-17 11:14 | CARD ---
MR#: [id number] Date of Study: 11/17/2018 Ordering Physician: ELVIRA LOPEZ, Referring Physician: ELVIRA LOPEZ, Tech: Shannon Liz VILMA APPROVED REPORT EXAM: Two-dimensional and M-mode echocardiogram with Doppler and color Doppler. Other Information Quality : GoodHR: 80bpm Rhythm : Pacemaker INDICATION Congestive Heart Failure 2D DIMENSIONS RVDd2.9 (2.9-3.5cm)Left Atrium(2D)4.9 (1.6-4.0cm) IVSd0.9 (0.7-1.1cm)Aortic Root(2D)2.9 (2.0-3.7cm) LVDd5.0 (3.9-5.9cm)LVOT Diameter1.9 (1.8-2.4cm) PWd1.2 (0.7-1.1cm)LVDs3.7 (2.5-4.0cm) FS (%) 27.0 %SV62.5 ml LVEF(%)53.0 (>50%) M-Mode DIMENSIONS Left Atrium(MM)4.93 (2.5-4.0cm)Aortic Root2.95 (2.2-3.7cm) Aortic Valve AoV Peak Zachary.112.0cm/sAoV VTI24.1cm AO Peak GR.5.0mmHgLVOT Peak Zachary.80.1cm/s AO Mean GR.3mmHgAVA (VMAX)2.08cm2 BEBETO (VTI)2.10cm2 Mitral Valve MV E Qtmbspwi289.2cm/sMV E Peak Gr.10mmHg MV DECEL [id number] A Hvonjpdu09.2cm/s MV E Mean Gr.4mmHgE/A Ratio4.8 Pulmonary Valve PV Peak Vdtdskqm52.8cm/s Tricuspid Valve TR P. [id number]/sRAP [id number] TR Peak Gr.66kcAzPOCV48olIt LEFT VENTRICLE The left ventricle is normal size. There is normal left ventricular wall thickness. The left ventricu lar systolic function is normal and the ejection fraction is within normal range. The Ejection Fracti on is 55%. There is normal LV segmental wall motion. Tissue Doppler imaging reveals moderate left becki tricular diastolic dysfunction. RIGHT VENTRICLE The right ventricle is normal size. There is normal right ventricular wall thickness. The right ventr icular systolic function is normal. ATRIA The left atrium is moderately dilated. The right atrium is moderately dilated. The interatrial septum is intact with no evidence for an atrial septal defect or patent foramen ovale as noted on 2-D or Do ppler imaging. AORTIC VALVE The aortic valve is normal in structure and function. The aortic valve is trileaflet. Doppler and Col or Flow revealed no significant aortic regurgitation. There is no significant aortic valvular stenosi s. There is no aortic valvular vegetation. MITRAL VALVE Mitral annular calcification is mild. There is no evidence of mitral valve prolapse. There is no mitr al valve stenosis. Doppler and Color-flow revealed mild mitral regurgitation. TRICUSPID VALVE The tricuspid valve is normal in structure and function. Doppler and Color Flow revealed mild tricusp id regurgitation. The PA pressure was estimated at 38 mmHg. There is no tricuspid valve prolapse or v egetation. There is no tricuspid valve stenosis. PULMONIC VALVE The pulmonic valve is not well visualized. GREAT VESSELS The aortic root is normal in size. The ascending aorta is normal in size. The IVC is normal in size a nd collapses >50% with inspiration. PERICARDIAL EFFUSION There is no evidence of significant pericardial effusion. Critical Notification Critical Value: No <Conclusion> The left ventricular systolic function is normal and the ejection fraction is within normal range. Th e Ejection Fraction is 55%. There is normal LV segmental wall motion. Tissue Doppler imaging reveals moderate left ventricular diastolic dysfunction. Doppler and Color-flow revealed mild mitral regurgitation. Doppler and Color Flow revealed mild tricuspid regurgitation. The PA pressure was estimated at 38 mmH g. Signed by : Elvira Lopez, Electronically Approved : 11/17/2018 11:13:45
[2018-11-17 11:29] LABS: BASO # 0.2 x10^3/uL (0.0-0.2); BASO % 2 % (0-3); EOS # 0.6 x10^3/uL (0.0-0.7); EOS % 7 % (0-3); HEMATOCRIT 37.1 % (36.0-47.0); HEMOGLOBIN 12.1 g/dL (12.0-15.5); LYMPH # 1.2 x10^3/uL (1.0-4.8); LYMPH % 13 % (24-48); MEAN CORPUSCULAR HEMOGLOBIN 28 pg (25-35); MEAN CORPUSCULAR HGB CONC 33 g/dL (31-37); MEAN CORPUSCULAR VOLUME 86 fL (79-100); MONO # 0.6 x10^3/uL (0.0-1.1); MONO % 7 % (0-9); NEUT # 6.2 x10^3uL (1.8-7.7); NEUT % 70 % (31-73); PLATELET COUNT 270 x10^3/uL (140-400); RED BLOOD COUNT 4.29 x10^6/uL (3.50-5.40); WHITE BLOOD COUNT 8.8 x10^3/uL (4.0-11.0)
[2018-11-17 12:32] LABS: ALBUMIN 3.5 g/dL (3.4-5.0); ALBUMIN/GLOBULIN RATIO 1.1 (1.0-1.7); CALCIUM 9.4 mg/dL (8.5-10.1); CREATININE 1.1 mg/dL (0.6-1.0); GFR 47.7; POTASSIUM 4.4 mmol/L (3.5-5.1); TOTAL BILIRUBIN 0.8 mg/dL (0.2-1.0); TOTAL PROTEIN 6.7 g/dL (6.4-8.2)
== END | disposition home or self-care (01) ==
LOC: ECHO 10:21
PROVIDERS: ATTEND Internal Medicine Cardiovascular Disease
DX: I08.1 Rheumatic disorders of both mitral and tricuspid valves (principal); I11.0 Hypertensive heart disease with heart failure; I50.33 Acute on chronic diastolic (congestive) heart failure; I48.2 Chronic atrial fibrillation
CPT/HCPCS: 36415; 80053; 83880; 85025; 93306

== ENCOUNTER 2018-12-04 12:48 | Emergency (ER) | payer BC, OTHER ==
[~2018-12-04] VITALS: Ht 165.1 cm; Wt 74.8 kg
[2018-12-04] MEDS ORDERED: HYDROcodone/APAP 5/325MG 1 TAB TABLET PO ONE (14:00)
--- NOTE | 2018-12-04 14:25 | RAD ---
RIBS LEFT AND PA CHEST History: Fall today with left-sided rib pain Comparison: February 25, 2018 Findings: Single view of the chest and 2 additional views left ribs are submitted. No pneumothorax is identified. Pericardial cardiac silhouette is somewhat prominent although similar. There is atherosclerotic calcification aortic arch. There is again dual lead left electronic cardiac device. There is slightly displaced left lateral 10th rib fracture. Impression: 1. There is slightly displaced left lateral 10th rib fracture, no pneumothorax. Electronically signed by: Jose Negrete MD (12/04/2018 2:21 PM) [id number]
[2018-12-04] MEDS ORDERED: HYDR-3164 PO (15:05)
--- NOTE | 2018-12-04 15:05 | PHYS DOC ---
Past Medical History Past Medical History: AIDS, A-Fib, Anxiety, Depression, Heart Disease, Hy pertension Past Surgical History: Hysterectomy Additional Past Surgical Histo: cardioversion x2 Alcohol Use: None Drug Use: None Adult General Chief Complaint Chief Complaint: MECHANICAL FALL HPI HPI Patient is a 83 year old male who was brought here for evaluation due to left- sided lower rib pain after she tripped on her feet and fell down hit her lateral chest on the edge of the bath tub. Patient denies hitting her head, denies any back pain, no extremity pain. Review of Systems Review of Systems Constitutional: Denies fever or chills [] Eyes: Denies change in visual acuity, redness, or eye pain [] HENT: Denies nasal congestion or sore throat [] Respiratory: Denies cough or shortness of breath [] Cardiovascular: No additional information not addressed in HPI [] GI: Denies abdominal pain, nausea, vomiting, bloody stools or diarrhea [] : Denies dysuria or hematuria [] Musculoskeletal: Denies back pain or joint pain [] Integument: Denies rash or skin lesions [] Neurologic: Denies headache, focal weakness or sensory changes [] Endocrine: Denies polyuria or polydipsia [] All other systems were reviewed and found to be within normal limits, except as documented in this note. Current Medications Current Medications Current Medications Medications (Trade) Dose Ordered Sig/Darius Start Time Stop Time Status Last Admin Dose Admin Acetaminophen/ Hydrocodone Bitart (Lortab 5/325) 2 tab 1X ONCE 12/04/18 14:00 12/04/18 14:01 DC 12/04/18 13:46 2 TAB Allergies Allergies Allergies Coded Allergies Type Severity Reaction Last Updated Verified Penicillins Allergy Intermediate Rash 12/19/17 Yes Sulfa (Sulfonamide Antibiotics) Allergy Intermediate Rash 12/19/17 Yes lactose Allergy Intermediate 12/19/17 Yes latex Allergy Intermediate Rash 12/19/17 Yes lovastatin Adverse Reaction Intermediate leg pain/off balance 12/19/17 Yes Physical Exam Physical Exam Constitutional: Well developed, well nourished, no acute distress, non-toxic appearance. [] HENT: Normocephalic, atraumatic, bilateral external ears normal, oropharynx moist, no oral exudates, nose normal. [] Eyes: PERRLA, EOMI, conjunctiva normal, no discharge. [] Neck: Normal range of motion, no tenderness, supple, no stridor. [] Cardiovascular:Heart rate regular rhythm, no murmur [] Lungs & Thorax: Bilateral breath sounds clear to auscultation . Left lower lateral rib cage is tender to palpation, no crepitus. Abdomen: Bowel sounds normal, soft, no tenderness, no masses, no pulsatile masses. [] Skin: Warm, dry, no erythema, no rash. [] Back: No tenderness, no CVA tenderness. [] Extremities: No tenderness, no cyanosis, no clubbing, ROM intact, no edema. [] Neurologic: Alert and oriented X 3, normal motor function, normal sensory function, no focal deficits noted. [] Psychologic: Affect normal, judgement normal, mood normal. [] Current Patient Data Vital Signs Vital Signs Date Time Temp Pulse Resp B/P (MAP) Pulse Ox O2 Delivery O2 Flow Rate FiO2 12/04/18 15:15 97.6 80 16 95 97.6 12/04/18 13:46 Room Air 12/04/18 13:08 135/77 (96) EKG EKG [] Radiology/Procedures Radiology/Procedures [][facility] [address] [place] [address] IMAGING REPORT Signed PATIENT: ISRAEL MAC ACCOUNT: [id number] : 1935 LOCATION: ER AGE: 83 SEX: F EXAM STATUS: REG ER ORD. PHYSICIAN: BETTY APPIAH DO REASON: fell, left side ribs pain,pt states today hitting lt ribs on bathtub PROCEDURE: RIBS LEFT AND PA CHEST RIBS LEFT AND PA CHEST History: Fall today with left-sided rib pain Comparison: February 25, 2018 Findings: Single view of the chest and 2 additional views left ribs are submitted. No pneumothorax is identified. Pericardial cardiac silhouette is somewhat prominent although similar. There is atherosclerotic calcification aortic arch. There is again dual lead left electronic cardiac device. There is slightly displaced left lateral 10th rib fracture. Impression: 1. There is slightly displaced left lateral 10th rib fracture, no pneumothorax. Electronically signed by: Leander Jennings MD (12/04/2018 2:21 PM) [email or web address] DICTATED and SIGNED BY: LEANDER JENNINGS MD DATE: 12/04/18 1421 Course & Med Decision Making Course & Med Decision Making Pertinent Labs and Imaging studies reviewed. (See chart for details) [] Dragon Disclaimer Dragon Disclaimer This electronic medical record was generated, in whole or in part, using a voice recognition dictation system. Departure Departure Impression: Primary Impression: Rib fracture Disposition: HOME, SELF-CARE Condition: STABLE Referrals: GAETANO DENISE DO (PCP) FOLLOW UP WITH YOUR DOCTOR NEEDED. RETURN IF WORSEN PAIN OR SHORTNESS OF AIR. Patient Instructions: Rib Fracture Scripts Hydrocodone/Apap 5-325 (NORCO 5-325 TABLET) 1 Each Tablet 1 TAB PO PRN Q6HRS PRN for PAIN, #15 TAB 0 Refills Prov: BETTY APPIAH DO 12/04/18 BETTY APPIAH DO Dec 04, 2018 15:05
[2018-12-04 15:15] VITALS: BP 146/82
== END 2018-12-04 15:15 | disposition home or self-care (01) ==
LOC: ER 12:48
DX: S22.32XA Fracture of one rib, left side, initial encounter for closed fracture (principal); I48.91 Unspecified atrial fibrillation; F41.9 Anxiety disorder, unspecified; F32.9 Major depressive disorder, single episode, unspecified; I11.9 Hypertensive heart disease without heart failure; Z90.710 Acquired absence of both cervix and uterus; Z88.0 Allergy status to penicillin; Z88.2 Allergy status to sulfonamides; Z88.8 Allergy status to other drugs, medicaments and biological substances; Z91.040 Latex allergy status; Z91.011 Allergy to milk products; W18.2XXA Fall in (into) shower or empty bathtub, initial encounter; Y93.89 Activity, other specified; Y92.89 Other specified places as the place of occurrence of the external cause; Y99.8 Other external cause status
CPT/HCPCS: 71101; 99284-25

== ENCOUNTER 2018-12-06 17:49 | Emergency (ER) | payer BC, OTHER ==
[~2018-12-06] VITALS: Ht 165.1 cm; Wt 72.6 kg
[~2018-12-06 17:49] MED LIST changes: +HYDR-3164 PO
[2018-12-06] MEDS ORDERED: LIDOCAINE (700MG/PATCH) PATCH. TD ONE (19:00)
[2018-12-06] MEDS ORDERED: MORPHINE SULFATE 4 MG/ML VIAL. IV ONE (19:00)
[2018-12-06 19:08] LABS: BASO # 0.1 x10^3/uL (0.0-0.2); BASO % 1 % (0-3); EOS # 0.5 x10^3/uL (0.0-0.7); EOS % 7 % (0-3); HEMOGLOBIN 11.6 g/dL (12.0-15.5); LYMPH % 14 % (24-48); MEAN CORPUSCULAR HEMOGLOBIN 29 pg (25-35); MEAN CORPUSCULAR HGB CONC 34 g/dL (31-37); MEAN CORPUSCULAR VOLUME 86 fL (79-100); MONO # 0.6 x10^3/uL (0.0-1.1); MONO % 9 % (0-9); NEUT # 4.8 x10^3uL (1.8-7.7); NEUT % 69 % (31-73); PLATELET COUNT 212 x10^3/uL (140-400); RED BLOOD COUNT 3.97 x10^6/uL (3.50-5.40); RED CELL DISTRIBUTION WIDTH 14.1 % (11.5-14.5)
--- NOTE | 2018-12-06 19:13 | PHYS DOC ---
Past Medical History Past Medical History: A-Fib, Anxiety, Depression, Heart Disease, Hypertension Past Surgical History: Hysterectomy, Pacemaker Additional Past Surgical Histo: cardioversion x2 Alcohol Use: None Drug Use: None Adult General Chief Complaint Chief Complaint: RIB PAIN HPI HPI Patient is a 83 year old female who presents the ER for evaluation of persistent left flank pain. Patient's seen after mechanical fall with injury to left rib region on Tuesday. At that time patient had x-ray imaging which confirmed 10th rib fracture. Patient reporting progression of pain to the anterior left upper quadrant abdominal area. Patient has been taking Beulah at home. Patient denies any significant shortness of breath. Patient is on Xarelto for A. fib and has been taking as prescribed. Pain is constant, 4-5 out of 10, worse with movement. No dizziness, lightheadedness, generalized weakness. No diarrhea no nausea and no vomiting. Review of Systems Review of Systems Constitutional: Denies fever or chills [] Eyes: Denies change in visual acuity, redness, or eye pain [] HENT: Denies nasal congestion or sore throat [] Respiratory: Denies cough or shortness of breath [] Cardiovascular: +chest wall pain, +palpitations, +LE edema [] GI: + ABD pain, nausea, vomiting, bloody stools or diarrhea [] : Denies dysuria or hematuria [] Musculoskeletal: + L rib pain [] Integument: Denies rash or skin lesions [] Neurologic: Denies headache, focal weakness or sensory changes [] Endocrine: Denies polyuria or polydipsia [] All other systems were reviewed and found to be within normal limits, except as documented in this note. Current Medications Current Medications Current Medications Medications (Trade) Dose Ordered Sig/Darius Start Time Stop Time Status Last Admin Dose Admin Iohexol (Omnipaque 300 Mg/ml) 60 ml 1X ONCE 12/06/18 19:30 12/06/18 19:31 DC 12/06/18 19:45 60 ML Lidocaine (Lidoderm) 1 patch ONCE ONCE 12/06/18 19:00 12/06/18 19:01 DC 12/06/18 20:25 1 PATCH Morphine Sulfate (Morphine Sulfate) 4 mg 1X ONCE 12/06/18 19:00 12/06/18 19:01 DC 12/06/18 18:51 4 MG Allergies Allergies Allergies Coded Allergies Type Severity Reaction Last Updated Verified Penicillins Allergy Intermediate Rash 12/19/17 Yes Sulfa (Sulfonamide Antibiotics) Allergy Intermediate Rash 12/19/17 Yes lactose Allergy Intermediate 12/19/17 Yes latex Allergy Intermediate Rash 12/19/17 Yes lovastatin Adverse Reaction Intermediate leg pain/off balance 12/19/17 Yes Physical Exam Physical Exam Constitutional: Well developed, well nourished, no acute distress, appears stated age HENT: Normocephalic, atraumatic, Eyes: PERRLA, EOMI, Neck: Normal range of motion, no tenderness, supple, no stridor. [] Cardiovascular: Irregularly irregular rhythm, no murmur [] Lungs & Thorax: Bilateral breath sounds clear to auscultation, 3 x 5 cm area of ecchymosis progressive to left lateral mid axillary rib cage. Area is tender wi th palpable underlying hematoma approximately 5 x 7 cm. Area is focally tender. No crepitus. [] Abdomen: Bowel sounds normal, soft, no tenderness, no masses, no pulsatile masses. [] Skin: Skin as above Back: No midline spinal tenderness. Extremities: No tenderness, no cyanosis, no clubbing, ROM intact, +1 nonpitting edema to bilateral lower extremities Neurologic: Alert and oriented X 3, no focal deficits noted. [] Psychologic: Affect normal, judgement normal, mood normal. [] Current Patient Data Vital Signs Vital Signs Date Time Temp Pulse Resp B/P (MAP) Pulse Ox O2 Delivery O2 Flow Rate FiO2 12/06/18 18:51 18 94 Nasal Cannula 12/06/18 17:50 97.9 80 149/87 (107) 97.9 Lab Values Laboratory Tests Test 12/06/18 18:45 White Blood Count 7.0 x10^3/uL (4.0-11.0) Red Blood Count 3.97 x10^6/uL (3.50-5.40) Hemoglobin 11.6 g/dL (12.0-15.5) L Hematocrit 34.0 % (36.0-47.0) L Mean Corpuscular Volume 86 fL (79-100) Mean Corpuscular Hemoglobin 29 pg (25-35) Mean Corpuscular Hemoglobin Concent 34 g/dL (31-37) Red Cell Distribution Width 14.1 % (11.5-14.5) Platelet Count 212 x10^3/uL (140-400) Neutrophils (%) (Auto) 69 % (31-73) Lymphocytes (%) (Auto) 14 % (24-48) L Monocytes (%) (Auto) 9 % (0-9) Eosinophils (%) (Auto) 7 % (0-3) H Basophils (%) (Auto) 1 % (0-3) Neutrophils # (Auto) 4.8 x10^3uL (1.8-7.7) Lymphocytes # (Auto) 1.0 x10^3/uL (1.0-4.8) Monocytes # (Auto) 0.6 x10^3/uL (0.0-1.1) Eosinophils # (Auto) 0.5 x10^3/uL (0.0-0.7) Basophils # (Auto) 0.1 x10^3/uL (0.0-0.2) Prothrombin Time 18.2 SEC (11.7-14.0) H Prothrombin Time INR 1.5 (0.8-1.1) H PTT 43 SEC (24-38) H Sodium Level 138 mmol/L (136-145) Potassium Level 3.8 mmol/L (3.5-5.1) Chloride Level 101 mmol/L (98-107) Carbon Dioxide Level 27 mmol/L (21-32) Anion Gap 10 (6-14) Blood Urea Nitrogen 14 mg/dL (7-20) Creatinine 1.1 mg/dL (0.6-1.0) H Estimated GFR (Cockcroft-Gault) 47.7 Glucose Level 92 mg/dL (70-99) Calcium Level 8.7 mg/dL (8.5-10.1) Laboratory Tests 12/06/18 18:45 Laboratory Tests 12/06/18 18:45 EKG EKG [] Radiology/Procedures Radiology/Procedures CT ABD/Pelvis IMPRESSION: 1. Increased stool right colon. 2. No renal or ureteral calculus noted. 3. No intra-abdominal hematoma or mass noted. 4. Small bilateral effusions with atelectasis in both lower lobes. 5. Cholelithiasis. 6. Multiple left rib fractures. [] Course & Med Decision Making Course & Med Decision Making Pertinent Labs and Imaging studies reviewed. (See chart for details) []And controlled in the ER. Lidoderm patch applied to affected left rib area. Patient advised to continue [id number] Lidoderm patches for continued pain control. Advised increased Beulah dosing for improved pain control. Provided with a further prescription and advised close follow-up with primary care physician. Discussed labs and CT with patient and family at bedside. Discussed reassuring intra-abdominal findings and the multiple rib fractures. Emphasized previous supportive care. Provided with IS. ER return precautions given. Patient verbalized understanding. All questions answered. Dragon Disclaimer Dragon Disclaimer This electronic medical record was generated, in whole or in part, using a voice recognition dictation system. Departure Departure Impression: Primary Impression: Multiple rib fractures involving four or more ribs Additional Impression: Left upper quadrant abdominal pain of unknown etiology Disposition: 01 HOME, SELF-CARE Condition: STABLE Referrals: GAETANO DENISE DO (PCP) Patient Instructions: Rib Fracture Additional Instructions: Thank you for coming to [facility]. Please read the attached handouts. Please follow-up with your primary care physician. Lidoderm patches [id number]. Please apply daily to left ribs per instructions on the back of the box. You can increase the hydrocodone to 1 every 4 hours as needed for uncontrolled pain. Please take MiraLAX for constipation. Return to the ER if your symptoms worsen or you have any other concerns. Scripts Hydrocodone/Apap 5-325 (NORCO 5-325 TABLET) 1 Each Tablet 1-2 EACH PO PRN Q4-6HRS PRN for PAIN, #15 as needed for pain Prov: EDGAR IYER DO 12/06/18 Problem Qualifiers EDGAR IYER DO Dec 06, 2018 19:13
[2018-12-06 19:17] LABS: PROTHROMBIN TIME PATIENT 18.2 SEC (11.7-14.0)
[2018-12-06 19:18] LABS: CALCIUM 8.7 mg/dL (8.5-10.1); CREATININE 1.1 mg/dL (0.6-1.0); GFR 47.7; POTASSIUM 3.8 mmol/L (3.5-5.1)
[2018-12-06 19:29] VITALS: BP 161/87
[2018-12-06] MEDS ORDERED: IOHEXOL 300 MG/ML 100ML VIAL. IV ONE (19:30)
--- NOTE | 2018-12-06 20:17 | RAD ---
CT abdomen and pelvis with contrast. HISTORY: Left lower quadrant pain, trauma CT scan the abdomen and pelvis was done using 60 mL Omnipaque 300. There are small bilateral pleural effusions. There is mild atelectasis in both lung bases. There is a calcified granuloma in the right lung base. There is a pacemaker in the heart.. A liver lesion is not identified. Gallbladder is mildly distended. There is a gallstone at the neck of the gallbladder. Spleen and adrenal glands are normal. Pancreas is normal. There is no mass or hydronephrosis in the kidneys. A ureteral calculus is not identified. There is increased stool in the colon. There is no bowel obstruction. There is no free fluid in the pelvis. The patient's had a hysterectomy. There is no intra-abdominal hematoma. Appendix is not identified. I do not see evidence of a diverticulitis. There is mild superficial soft tissue swelling along the lower left ribs. There is mild edema in the back. There are fractures of the left seventh, eighth, ninth and 10th ribs, the ninth rib fracture is displaced. IMPRESSION: 1. Increased stool right colon. 2. No renal or ureteral calculus noted. 3. No intra-abdominal hematoma or mass noted. 4. Small bilateral effusions with atelectasis in both lower lobes. 5. Cholelithiasis. 6. Multiple left rib fractures. PQRS Compliance Statement: One or more of the following individualized dose reduction techniques were utilized for this examination: 1. Automated exposure control 2. Adjustment of the mA and/or kV according to patient size 3. Use of iterative reconstruction technique Electronically signed by: Carlos Santiago MD (12/06/2018 8:14 PM) [facility]
[2018-12-06] MEDS ORDERED: HYDR-3164 PO (20:38)
== END 2018-12-06 21:57 | disposition home or self-care (01) ==
LOC: ER 17:49
DX: S22.42XA Multiple fractures of ribs, left side, initial encounter for closed fracture (principal); R10.12 Left upper quadrant pain; R11.2 Nausea with vomiting, unspecified; K80.20 Calculus of gallbladder without cholecystitis without obstruction; J98.11 Atelectasis; I48.91 Unspecified atrial fibrillation; I11.9 Hypertensive heart disease without heart failure; F41.9 Anxiety disorder, unspecified; F32.9 Major depressive disorder, single episode, unspecified; Z90.710 Acquired absence of both cervix and uterus; Z95.0 Presence of cardiac pacemaker; Z88.0 Allergy status to penicillin; Z88.2 Allergy status to sulfonamides; Z91.040 Latex allergy status; Z91.011 Allergy to milk products; Z88.8 Allergy status to other drugs, medicaments and biological substances; W18.39XA Other fall on same level, initial encounter; Y93.89 Activity, other specified; Y92.89 Other specified places as the place of occurrence of the external cause; Y99.8 Other external cause status
CPT/HCPCS: 36415; 74177; 80048; 85025; 85610; 85730; 96374; 99285; J2270; Q9967

== ENCOUNTER 2018-12-13 23:59 | Emergency (ER) | payer BC, OTHER ==
[~2018-12-13] VITALS: Ht 165.1 cm; Wt 74.4 kg
[2018-12-14 00:59] LABS: BASO # 0.1 x10^3/uL (0.0-0.2); BASO % 2 % (0-3); EOS # 0.5 x10^3/uL (0.0-0.7); EOS % 7 % (0-3); HEMATOCRIT 33.4 % (36.0-47.0); HEMOGLOBIN 11.5 g/dL (12.0-15.5); LYMPH # 0.9 x10^3/uL (1.0-4.8); LYMPH % 15 % (24-48); MEAN CORPUSCULAR HEMOGLOBIN 29 pg (25-35); MEAN CORPUSCULAR HGB CONC 35 g/dL (31-37); MEAN CORPUSCULAR VOLUME 85 fL (79-100); MONO # 0.4 x10^3/uL (0.0-1.1); MONO % 7 % (0-9); NEUT # 4.3 x10^3uL (1.8-7.7); NEUT % 69 % (31-73); PLATELET COUNT 225 x10^3/uL (140-400); RED BLOOD COUNT 3.95 x10^6/uL (3.50-5.40); RED CELL DISTRIBUTION WIDTH 14.2 % (11.5-14.5); WHITE BLOOD COUNT 6.3 x10^3/uL (4.0-11.0)
[2018-12-14] MEDS ORDERED: amLODIPine BESYLATE 5 MG TABLET PO ONE (01:00)
[2018-12-14 01:09] LABS: CALCIUM 9.1 mg/dL (8.5-10.1); CREATININE 0.9 mg/dL (0.6-1.0); GFR 60.1; POTASSIUM 3.4 mmol/L (3.5-5.1)
[2018-12-14 01:15] LABS: ALBUMIN 3.4 g/dL (3.4-5.0); ALBUMIN/GLOBULIN RATIO 1.1 (1.0-1.7); TOTAL BILIRUBIN 0.7 mg/dL (0.2-1.0); TOTAL PROTEIN 6.6 g/dL (6.4-8.2)
[2018-12-14] MEDS ORDERED: METOCLOPRAMIDE HCL 10 MG/2 ML VIAL. IV ONE (01:45)
--- NOTE | 2018-12-14 02:21 | RAD ---
Limited ultrasound abdomen December 14, 2018 INDICATION: Gallstones with elevated liver function enzymes. COMPARISON: CT abdomen/pelvis December 06, 2018 TECHNIQUE: Sonographic evaluation of the right upper quadrant was performed utilizing grayscale and color Doppler. FINDINGS: Visualized portions of the pancreas appear normal. Body and tail are obscured by bowel gas. Main pancreatic duct is within normal limits. CBD of the necrotic head measures 3 mm. Main pancreatic duct measures 1.7 mm. CBD measures 3 mm. Aorta and IVC are within normal limits. Small pleural effusion. Increased echogenicity of the hepatic parenchyma suggestive of hepatocellular disease, most commonly hepatic steatosis. No intrahepatic or extrahepatic biliary ductal dilatation. There is hepatopedal flow within the portal venous system. Right hepatic lobe measures 17.7 cm. Gallstones are identified within the gallbladder. No gallbladder wall thickening or pericholecystic fluid. Right kidney measures 10.7 x 4.9 x 5.2 cm. No hydronephrosis. No solid renal masses. No renal calculi. There is no free fluid in the right upper quadrant. IMPRESSION: 1. Cholelithiasis without sonographic evidence for acute cholecystitis. 2. No intrahepatic or extrahepatic biliary ductal dilatation. 3. Right pleural effusion. Next on 4. Hepatic steatosis. Electronically signed by: Inge Sawyer MD (12/14/2018 2:18 AM) [facility]
[2018-12-14 03:15] VITALS: BP 155/102
--- NOTE | 2018-12-14 04:26 | PHYS DOC ---
Past Medical History Past Medical History: A-Fib, Anxiety, Depression, Heart Disease, Hypertension Past Surgical History: Hysterectomy, Pacemaker Additional Past Surgical Histo: cardioversion x2 Alcohol Use: None Drug Use: None Adult General Chief Complaint Chief Complaint: MULTIPLE COMPLAINTS [facility] HPI Patient is a 83 year old female is presenting with multiple complaints. The primary complaint is that of patient has some nausea and just not feeling right the past couple of days really no abdominal pain she has had some rib fractures recently she is recovering from those that she has stopped her narcotic pain medication she is still using a Lidoderm patch. Of note she recently about a month ago or so switched from flecainide to multaq for antiarrhythmic control. She denies any abdominal pain no fever just feeling a little bit "off". No problems urinating. Tonight she was checking her blood pressure was in the 160s and because she just wasn't feeling quite right she was advised to come to the emergency room for evaluation. Review of Systems Review of Systems Constitutional: Denies fever or chills [] Eyes: Denies change in visual acuity, redness, or eye pain [] HENT: Denies nasal congestion or sore throat [] Respiratory: Denies cough or shortness of breath [] Cardiovascular: No additional information not addressed in HPI [] GI: Denies abdominal pain, nausea, vomiting, bloody stools or diarrhea [] : Denies dysuria or hematuria [] Musculoskeletal: Denies back pain or joint pain [] Integument: Denies rash or skin lesions [] Neurologic: Denies headache, focal weakness or sensory changes [] Endocrine: Denies polyuria or polydipsia [] All other systems were reviewed and found to be within normal limits, except as documented in this note. Current Medications Current Medications Current Medications Medications (Trade) Dose Ordered Sig/Darius Start Time Stop Time Status Last Admin Dose Admin Amlodipine Besylate (Norvasc) 5 mg 1X ONCE 12/14/18 01:00 12/14/18 01:01 DC 12/14/18 00:57 5 MG Metoclopramide HCl (Reglan Vial) 5 mg 1X ONCE 12/14/18 01:45 12/14/18 01:46 DC 12/14/18 01:43 5 MG Allergies Allergies Allergies Coded Allergies Type Severity Reaction Last Updated Verified Penicillins Allergy Intermediate Rash 12/19/17 Yes Sulfa (Sulfonamide Antibiotics) Allergy Intermediate Rash 12/19/17 Yes lactose Allergy Intermediate 12/19/17 Yes latex Allergy Intermediate Rash 12/19/17 Yes lovastatin Adverse Reaction Intermediate leg pain/off balance 12/19/17 Yes Physical Exam Physical Exam Constitutional: Well developed, well nourished, no acute distress, non-toxic appearance. [] HENT: Normocephalic, atraumatic, bilateral external ears normal, oropharynx moist, no oral exudates, nose normal. [] Eyes: PERRLA, EOMI, conjunctiva normal, no discharge. [] Neck: Normal range of motion, no tenderness, supple, no stridor. [] Cardiovascular irregular no definite murmurs Lungs & Thorax: Bilateral breath sounds clear to auscultation []chest wall tenderness to palpation is noted Abdomen: Bowel sounds normal, soft, no tenderness, no masses, no pulsatile masses. [] Skin: Warm, dry, no erythema, no rash. [] Back: No tenderness, no CVA tenderness. [] Extremities: No tenderness, no cyanosis, no clubbing, ROM intact, 1+ edema bilaterally symmetric Neurologic: Alert and oriented X 3, normal motor function, normal sensory function, no focal deficits noted. [] Psychologic: Affect normal, judgement normal, mood normal. Current Patient Data Vital Signs Vital Signs Date Time Temp Pulse Resp B/P (MAP) Pulse Ox O2 Delivery O2 Flow Rate FiO2 12/14/18 03:15 80 155/102 (119) 96 12/14/18 00:10 98.2 18 Room Air 98.2 Lab Values Laboratory Tests Test 12/14/18 00:35 White Blood Count 6.3 x10^3/uL (4.0-11.0) Red Blood Count 3.95 x10^6/uL (3.50-5.40) Hemoglobin 11.5 g/dL (12.0-15.5) L Hematocrit 33.4 % (36.0-47.0) L Mean Corpuscular Volume 85 fL (79-100) Mean Corpuscular Hemoglobin 29 pg (25-35) Mean Corpuscular Hemoglobin Concent 35 g/dL (31-37) Red Cell Distribution Width 14.2 % (11.5-14.5) Platelet Count 225 x10^3/uL (140-400) Neutrophils (%) (Auto) 69 % (31-73) Lymphocytes (%) (Auto) 15 % (24-48) L Monocytes (%) (Auto) 7 % (0-9) Eosinophils (%) (Auto) 7 % (0-3) H Basophils (%) (Auto) 2 % (0-3) Neutrophils # (Auto) 4.3 x10^3uL (1.8-7.7) Lymphocytes # (Auto) 0.9 x10^3/uL (1.0-4.8) L Monocytes # (Auto) 0.4 x10^3/uL (0.0-1.1) Eosinophils # (Auto) 0.5 x10^3/uL (0.0-0.7) Basophils # (Auto) 0.1 x10^3/uL (0.0-0.2) Sodium Level 139 mmol/L (136-145) Potassium Level 3.4 mmol/L (3.5-5.1) L Chloride Level 103 mmol/L (98-107) Carbon Dioxide Level 24 mmol/L (21-32) Anion Gap 12 (6-14) Blood Urea Nitrogen 21 mg/dL (7-20) H Creatinine 0.9 mg/dL (0.6-1.0) Estimated GFR (Cockcroft-Gault) 60.1 BUN/Creatinine Ratio 23 (6-20) H Glucose Level 134 mg/dL (70-99) H Calcium Level 9.1 mg/dL (8.5-10.1) Total Bilirubin 0.7 mg/dL (0.2-1.0) Aspartate Amino Transferase (AST) 59 U/L (15-37) H Alanine Aminotransferase (ALT) 97 U/L (14-59) H Alkaline Phosphatase 108 U/L (46-116) Troponin I Quantitative < 0.017 ng/mL (0.000-0.055) Total Protein 6.6 g/dL (6.4-8.2) Albumin 3.4 g/dL (3.4-5.0) Albumin/Globulin Ratio 1.1 (1.0-1.7) Lipase 148 U/L (73-393) Laboratory Tests 12/14/18 00:35 Laboratory Tests 12/14/18 00:35 EKG EKG []EKG shows a normal sinus rhythm rate of 77 QRS is prolonged no STEMI Radiology/Procedures Radiology/Procedures [] Impressions: IMPRESSION: 1. Cholelithiasis without sonographic evidence for acute cholecystitis. 2. No intrahepatic or extrahepatic biliary ductal dilatation. 3. Right pleural effusion. Next on 4. Hepatic steatosis. Electronically signed by: Inge Sawyer MD (12/14/2018 2:18 AM) [facility] Course & Med Decision Making Course & Med Decision Making Pertinent Labs and Imaging studies reviewed. (See chart for details) []83-year-old female presenting with initial chief complaint of high blood pressure associated with some mild nausea ER workup reveals a negative troponin likely paced rhythm on the EKG nontender abdomen LFTs were mildly elevated I suspect possibly her new antiarrhythmic agent and mULTAQ Ultrasound showed no evidence of choledocholithiasis or cholecystitis she does have gallstones but I don't think they're causing her symptoms. I recommended that she call her filemaker developer tomorrow for follow-up to review what to do about these medication changes Dragon Disclaimer Dragon Disclaimer This electronic medical record was generated, in whole or in part, using a voice recognition dictation system. Departure Departure Impression: Primary Impression: Elevated blood pressure reading Additional Impression: Elevated LFTs Disposition: HOME, SELF-CARE Condition: STABLE Patient Instructions: Hypertension, [id number] Additional Instructions: please CALL YOUR YOUTH ACCOMMODATION SUPPORT WORKER TOMORROW TO TALK ABOUT THE MULTAQ AND THE ELEVATED LIVER ENZYMES WE DIAGNOSED IN THE EMERGENCY ROOM. YOU MAY NEED TO SWITCH THE MEDICATION. Problem Qualifiers TELLO BYRNE MD Dec 14, 2018 04:26
--- NOTE | 2018-12-14 05:56 | EKG ---
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
== END 2018-12-14 03:24 | disposition home or self-care (01) ==
LOC: ER 23:59
DX: I11.9 Hypertensive heart disease without heart failure (principal); R79.89 Other specified abnormal findings of blood chemistry; I48.91 Unspecified atrial fibrillation; F41.9 Anxiety disorder, unspecified; F32.9 Major depressive disorder, single episode, unspecified; Z90.710 Acquired absence of both cervix and uterus; Z95.0 Presence of cardiac pacemaker; Z88.0 Allergy status to penicillin; Z88.2 Allergy status to sulfonamides; Z91.040 Latex allergy status; Z91.011 Allergy to milk products; Z88.8 Allergy status to other drugs, medicaments and biological substances
CPT/HCPCS: 36415; 76705; 80053; 83690; 84484; 85025; 93005; 96374; 99285; J2765

== ENCOUNTER 2019-07-07 12:53 | Emergency (ER) | payer BC ==
[2019-07-07] MEDS ORDERED: IV NORMAL SALINE 1000ML BAG 1,000 ML IV SCH (13:34)
--- NOTE | 2019-07-07 13:40 | PHYS DOC ---
Past Medical History Past Medical History: A-Fib, Anxiety, Depression, Heart Disease, Hypertension Past Surgical History: Hysterectomy, Pacemaker Additional Past Surgical Histo: cardioversion x2 Alcohol Use: None Drug Use: None Adult General Chief Complaint Chief Complaint: ABDOMINAL PAIN HPI HPI Patient is an 84-year-old female who presents with complaint of mid abdominal pain that started a couple of days ago. Patient states that his long as she is lying still she really doesn't have any pain but she states that when she stands up and bends over, she has a lot of pain in her periumbilical region that radiates to both sides. At those times she states pain is a 9 to a 10 out of 10. She states that she has been nauseated but has not been able to vomit and has had no diarrhea. She denies any radiation of the pain currently but states that at times it has been radiating into her back.[] Review of Systems Review of Systems Constitutional: Denies fever or chills [] Respiratory: Denies cough or shortness of breath [] Cardiovascular: No additional information not addressed in HPI [] GI: Complains of abdominal pain with nausea. Denies vomiting or diarrhea [] Integument: Denies rash or skin lesions [] Neurologic: Denies headache, focal weakness or sensory changes [] All other systems were reviewed and found to be within normal limits, except as documented in this note. Current Medications Current Medications Current Medications Medications (Trade) Dose Ordered Sig/Darius Start Time Stop Time Status Last Admin Dose Admin Fentanyl Citrate (Fentanyl 2ml Vial) 50 mcg 1X ONCE 07/07/19 16:00 07/07/19 16:01 DC Hydralazine HCl (Apresoline Inj) 10 mg 1X ONCE 07/07/19 17:00 07/07/19 17:04 DC 07/07/19 16:52 10 MG Info (CONTRAST GIVEN -- Rx MONITORING) 1 each PRN DAILY PRN 07/07/19 16:00 07/09/19 15:59 Iohexol (Omnipaque 300 Mg/ml) 60 ml 1X ONCE 07/07/19 15:45 07/07/19 15:50 DC 07/07/19 16:00 60 ML Ondansetron HCl (Zofran) 4 mg 1X ONCE 07/07/19 13:45 07/07/19 13:46 DC 07/07/19 14:13 4 MG Sodium Chloride 1,000 ml @ 1,000 mls/hr Q1H 07/07/19 13:34 07/07/19 14:33 DC 07/07/19 14:13 1,000 MLS/HR Allergies Allergies Allergies Coded Allergies Type Severity Reaction Last Updated Verified Penicillins Allergy Intermediate Rash 12/19/17 Yes Sulfa (Sulfonamide Antibiotics) Allergy Intermediate Rash 12/19/17 Yes lactose Allergy Intermediate 12/19/17 Yes latex Allergy Intermediate Rash 12/19/17 Yes lovastatin Adverse Reaction Intermediate leg pain/off balance 12/19/17 Yes Physical Exam Physical Exam Constitutional: Well developed, well nourished, no acute distress, non-toxic appearance. [] HENT: Normocephalic, atraumatic, bilateral external ears normal, oropharynx moist, no oral exudates, nose normal. [] Eyes: PERRLA, EOMI, conjunctiva normal, no discharge. [] Neck: Normal range of motion, no tenderness, supple, no stridor. [] Cardiovascular: Normal rate with irregular rhythm[] Lungs & Thorax: Bilateral breath sounds clear to auscultation [] Abdomen: Bowel sounds normal, soft, with diffuse lower abdominal tenderness. [] Skin: Warm, dry, no erythema, no rash. [] Extremities: No tenderness, no cyanosis, no clubbing, ROM intact. [] Neurologic: Alert and oriented X 3, no focal deficits noted. [] Current Patient Data Vital Signs Vital Signs Date Time Temp Pulse Resp B/P (MAP) Pulse Ox O2 Delivery O2 Flow Rate FiO2 07/07/19 17:21 95 16 183/98 (126) 96 07/07/19 13:31 97.8 Room Air 97.8 Lab Values Laboratory Tests Test 07/07/19 13:55 07/07/19 14:00 07/07/19 14:27 Urine Collection Type Unknown Urine Color Yellow Urine Clarity Clear Urine pH 5.5 Urine Specific [place] 1.010 Urine Protein Negative mg/dL (NEG-TRACE) Urine Glucose (UA) Negative mg/dL (NEG) Urine Ketones (Stick) Negative mg/dL (NEG) Urine Blood Negative (NEG) Urine Nitrite Negative (NEG) Urine Bilirubin Negative (NEG) Urine Urobilinogen Dipstick 0.2 mg/dL (0.2 mg/dL) Urine Leukocyte Esterase Negative (NEG) Urine RBC Occ /HPF (0-2) Urine WBC Occ /HPF (0-4) Urine Squamous Epithelial Cells Few /LPF Urine Bacteria 0 /HPF (0-FEW) Urine Mucus Slight /LPF White Blood Count 9.2 x10^3/uL (4.0-11.0) Red Blood Count 4.57 x10^6/uL (3.50-5.40) Hemoglobin 13.4 g/dL (12.0-15.5) Hematocrit 39.3 % (36.0-47.0) Mean Corpuscular Volume 86 fL (79-100) Mean Corpuscular Hemoglobin 29 pg (25-35) Mean Corpuscular Hemoglobin Concent 34 g/dL (31-37) Red Cell Distribution Width 15.5 % (11.5-14.5) H Platelet Count 236 x10^3/uL (140-400) Neutrophils (%) (Auto) 83 % (31-73) H Lymphocytes (%) (Auto) 10 % (24-48) L Monocytes (%) (Auto) 5 % (0-9) Eosinophils (%) (Auto) 2 % (0-3) Basophils (%) (Auto) 1 % (0-3) Neutrophils # (Auto) 7.6 x10^3/uL (1.8-7.7) Lymphocytes # (Auto) 0.9 x10^3/uL (1.0-4.8) L Monocytes # (Auto) 0.4 x10^3/uL (0.0-1.1) Eosinophils # (Auto) 0.2 x10^3/uL (0.0-0.7) Basophils # (Auto) 0.1 x10^3/uL (0.0-0.2) Sodium Level 140 mmol/L (136-145) Potassium Level 3.2 mmol/L (3.5-5.1) L Chloride Level 101 mmol/L (98-107) Carbon Dioxide Level 28 mmol/L (21-32) Anion Gap 11 (6-14) Blood Urea Nitrogen 16 mg/dL (7-20) Creatinine 0.9 mg/dL (0.6-1.0) Estimated GFR (Cockcroft-Gault) 59.9 BUN/Creatinine Ratio 18 (6-20) Glucose Level 175 mg/dL (70-99) H Calcium Level 9.0 mg/dL (8.5-10.1) Total Bilirubin 0.6 mg/dL (0.2-1.0) Aspartate Amino Transferase (AST) 14 U/L (15-37) L Alanine Aminotransferase (ALT) 25 U/L (14-59) Alkaline Phosphatase 83 U/L (46-116) Total Protein 6.4 g/dL (6.4-8.2) Albumin 3.4 g/dL (3.4-5.0) Albumin/Globulin Ratio 1.1 (1.0-1.7) Lipase 158 U/L (73-393) Laboratory Tests 07/07/19 14:00 Laboratory Tests 07/07/19 14:27 EKG EKG [] Radiology/Procedures Radiology/Procedures [] Impressions: PROCEDURE: CT ABD PELV W/ IV CONTRST ONLY CT abdomen pelvis with contrast dated 07/07/2019. Comparison made to 07/08/2018. CLINICAL INDICATION: Abdominal pain technique: Contiguous axial imaging the abdomen and pelvis performed after the administration of 60 cc Omnipaque 300. One or more of the following individualized dose reduction techniques were utilized for this examination: 1. Automated exposure control 2. Adjustment of the mA and/or kV according to patient size 3. Use of iterative reconstruction technique. FINDINGS: Limited images of lung bases show moderate cardiac enlargement. No pericardial effusion. There are tiny bilateral pleural effusions. Minimal linear opacity at both lung bases, likely scar or atelectasis. There is a noncalcified pulmonary nodule in the right lower lobe on image 6 that measures 7 mm, unchanged. Liver, spleen, pancreas, adrenal glands and kidneys are unremarkable. No hydronephrosis. There is a calcific stone in the gallbladder, unchanged. Unopacified GI tract normal in caliber and contour. No focal bowel wall thickening. No inflammatory stranding in the mesentery. No ascites or lymphadenopathy. Abdominal aorta normal in caliber. Images of pelvis and mildly distended urinary bladder. The uterus is surgically absent. No free fluid or lymphadenopathy. Bone windows show no acute findings. Mild lower lumbar spondylosis. IMPRESSION: 1. No acute abnormality of abdomen or pelvis. 2. Cholelithiasis. 3. Small bilateral pleural effusions, unchanged. There is also small noncalcified pulmonary nodule in the right lower lobe, nonspecific but unchanged. 4. Status post hysterectomy. Electronically signed by: Roc Paige MD (07/07/2019 4:12 PM) [facility] Course & Med Decision Making Course & Med Decision Making Pertinent Labs and Imaging studies reviewed. (See chart for details) [] Dragon Disclaimer Dragon Disclaimer This electronic medical record was generated, in whole or in part, using a voice recognition dictation system. Departure Departure Impression: Primary Impression: Abdominal pain Additional Impression: Hypertension Disposition: HOME, SELF-CARE Condition: STABLE Referrals: GAETANO DENISE DO (PCP) Patient Instructions: Abdominal Pain, Hypertension Problem Qualifiers Primary Impression: Abdominal pain Abdominal location: unspecified location Qualified Codes: R10.9 - Unspecified abdominal pain Additional Impression: Hypertension Hypertension type: essential hypertension Qualified Codes: I10 - Essential (primary) hypertension BIBIANA SPENCER Jr., DO Jul 07, 2019 13:40
[2019-07-07] MEDS ORDERED: ONDANSETRON PF 4 MG/2 ML VIAL. IV ONE (13:45)
[2019-07-07 14:09] LABS: BILIRUBIN,URINE NEGATIVE (NEG); CLARITY,URINE CLEAR; COLOR,URINE YELLOW; NITRITE,URINE NEGATIVE (NEG); PH,URINE 5.5; PROTEIN,URINE NEGATIVE (NEG-TRACE); UROBILINOGEN,URINE 0.2 mg/dL (0.2 mg/dL)
[2019-07-07] MEDS: fentaNYL PF VIAL 100 MCG/2 ML VIAL IV PRN ×3 (14:13→16:52)
[2019-07-07 14:15] LABS: BASO # 0.1 x10^3/uL (0.0-0.2); BASO % 1 % (0-3); EOS # 0.2 x10^3/uL (0.0-0.7); EOS % 2 % (0-3); HEMATOCRIT 39.3 % (36.0-47.0); HEMOGLOBIN 13.4 g/dL (12.0-15.5); LYMPH # 0.9 x10^3/uL (1.0-4.8); LYMPH % 10 % (24-48); MEAN CORPUSCULAR HEMOGLOBIN 29 pg (25-35); MEAN CORPUSCULAR HGB CONC 34 g/dL (31-37); MEAN CORPUSCULAR VOLUME 86 fL (79-100); MONO # 0.4 x10^3/uL (0.0-1.1); MONO % 5 % (0-9); NEUT # 7.6 x10^3/uL (1.8-7.7); NEUT % 83 % (31-73); PLATELET COUNT 236 x10^3/uL (140-400); RED BLOOD COUNT 4.57 x10^6/uL (3.50-5.40); RED CELL DISTRIBUTION WIDTH 15.5 % (11.5-14.5); WHITE BLOOD COUNT 9.2 x10^3/uL (4.0-11.0)
[2019-07-07 14:39] LABS: SQUAMOUS EPITHELIAL CELL,UR FEW /LPF
[2019-07-07 14:40] LABS: BACTERIA,URINE 0 /HPF (0-FEW); RBC,URINE OCC /HPF (0-2); WBC,URINE OCC /HPF (0-4)
[2019-07-07 15:02] LABS: CREATININE 0.9 mg/dL (0.6-1.0); GFR 59.9; POTASSIUM 3.2 mmol/L (3.5-5.1)
[2019-07-07 15:09] LABS: ALBUMIN 3.4 g/dL (3.4-5.0); ALBUMIN/GLOBULIN RATIO 1.1 (1.0-1.7); TOTAL BILIRUBIN 0.6 mg/dL (0.2-1.0); TOTAL PROTEIN 6.4 g/dL (6.4-8.2)
[2019-07-07] MEDS ORDERED: IOHEXOL 300 MG/ML 100ML VIAL. IV ONE (15:45)
[2019-07-07] MEDS ORDERED: fentaNYL PF VIAL 100 MCG/2 ML VIAL IVP ONE (16:00)
[2019-07-07] MEDS ORDERED: CONTRAST GIVEN. MC PRN (16:00)
--- NOTE | 2019-07-07 16:15 | RAD ---
CT abdomen pelvis with contrast dated 07/07/2019. Comparison made to 07/08/2018. CLINICAL INDICATION: Abdominal pain technique: Contiguous axial imaging the abdomen and pelvis performed after the administration of 60 cc Omnipaque 300. One or more of the following individualized dose reduction techniques were utilized for this examination: 1. Automated exposure control 2. Adjustment of the mA and/or kV according to patient size 3. Use of iterative reconstruction technique. FINDINGS: Limited images of lung bases show moderate cardiac enlargement. No pericardial effusion. There are tiny bilateral pleural effusions. Minimal linear opacity at both lung bases, likely scar or atelectasis. There is a noncalcified pulmonary nodule in the right lower lobe on image 6 that measures 7 mm, unchanged. Liver, spleen, pancreas, adrenal glands and kidneys are unremarkable. No hydronephrosis. There is a calcific stone in the gallbladder, unchanged. Unopacified GI tract normal in caliber and contour. No focal bowel wall thickening. No inflammatory stranding in the mesentery. No ascites or lymphadenopathy. Abdominal aorta normal in caliber. Images of pelvis and mildly distended urinary bladder. The uterus is surgically absent. No free fluid or lymphadenopathy. Bone windows show no acute findings. Mild lower lumbar spondylosis. IMPRESSION: 1. No acute abnormality of abdomen or pelvis. 2. Cholelithiasis. 3. Small bilateral pleural effusions, unchanged. There is also small noncalcified pulmonary nodule in the right lower lobe, nonspecific but unchanged. 4. Status post hysterectomy. Electronically signed by: Roc Paige MD (07/07/2019 4:12 PM) [facility]
[2019-07-07] MEDS ORDERED: hydrALAZINE 20 MG/ML VIAL. IVP ONE (17:00)
[2019-07-07 17:21] VITALS: BP 183/98
== END 2019-07-07 17:50 | disposition home or self-care (01) ==
LOC: ER 12:53
DX: R10.33 Periumbilical pain (principal); I11.9 Hypertensive heart disease without heart failure; R10.84 Generalized abdominal pain; I48.91 Unspecified atrial fibrillation; F41.9 Anxiety disorder, unspecified; D32.9 Benign neoplasm of meninges, unspecified; Z90.710 Acquired absence of both cervix and uterus; Z95.0 Presence of cardiac pacemaker; Z88.0 Allergy status to penicillin; Z88.2 Allergy status to sulfonamides; Z91.040 Latex allergy status; Z88.8 Allergy status to other drugs, medicaments and biological substances; Z91.011 Allergy to milk products
CPT/HCPCS: 36415; 74177; 80053; 81001; 83690; 85025; 96374; 96375; 96376; 99285; J0360; J2405; J3010; J7030; Q9967

== ENCOUNTER → 2020-04-14 | Outpatient (CLI) | payer BC ==
[~2020-04-14] MED LIST changes: -AMIO200T4 PO; +AMIO200T6 PO; +AMLO-187 PO; -AMLO10TA8 PO; -CALC600T4 PO; +CALC600T6 PO
--- NOTE | 2020-04-15 11:02 | CARD ---
MR#: [id number] Date of Study: 04/14/2020 Ordering Physician: ELVIRA LOPEZ, Referring Physician: ELVIRA LOPEZ, Tech: Tatyana Mclean APPROVED REPORT EXAM: Two-dimensional and M-mode echocardiogram with Doppler and color Doppler. Other Information Quality : AverageHR: 74bpm INDICATION Atrial Fibrillation Surgery/Intervention Pacemaker: Date: 2017 RISK FACTORS Hypertension 2D DIMENSIONS RVDd3.2 (2.9-3.5cm)Left Atrium(2D)4.2 (1.6-4.0cm) IVSd0.8 (0.7-1.1cm)Aortic Root(2D)2.8 (2.0-3.7cm) LVDd5.2 (3.9-5.9cm)LVOT Diameter1.8 (1.8-2.4cm) PWd0.9 (0.7-1.1cm)LVDs3.1 (2.5-4.0cm) FS (%) 40.7 %SV92.3 ml LVEF(%)71.0 (>50%) Aortic Valve AoV Peak Zachary.118.4cm/sAoV VTI19.9cm AO Peak GR.5.6mmHgLVOT Peak Zachary.83.1cm/s LVOT VTI 17.68cmAO Mean GR.3mmHg BEBETO (VMAX)1.08sd6MAY (VTI)2.34cm2 Mitral Valve MV E Khtceist480.4cm/s TDI E/Lateral E'12.4E/Medial E'10.3 Pulmonary Valve PV Peak Eqpknwyc22.6cm/sPV Peak Grad.2mmHg Tricuspid Valve TR P. Szjzguss428gl/sTR Peak Gr.29mmHg LEFT VENTRICLE The left ventricle is normal size. There is normal left ventricular wall thickness. The left ventricu lar systolic function is normal. The Ejection Fraction is 55-60%. Septal motion due to pacemaker acti vation. Diastology indeterminate due to atrial fibrillation. RIGHT VENTRICLE The right ventricle is normal size. There is normal right ventricular wall thickness. The right ventr icular systolic function is normal. There is a pacemaker lead in the right ventricle. ATRIA The left atrium is moderately dilated. There is a pacemaker lead seen in the right atrium. The right atrium is moderately dilated. The interatrial septum is intact with no evidence for an atrial septal defect or patent foramen ovale as noted on 2-D or Doppler imaging. AORTIC VALVE The aortic valve is thickened but opens well. Doppler and Color Flow revealed no significant aortic r egurgitation. Calculated aortic valve area is 2.22 cm2 with maximum pressure gradient of 7 mmHg and m ishmael pressure gradient of 3 mmHg. There is no significant aortic valvular stenosis. MITRAL VALVE Mitral annular calcification is mild. There is no evidence of mitral valve prolapse. There is no mitr al valve stenosis. Doppler and Color-flow revealed trace mitral regurgitation. TRICUSPID VALVE The tricuspid valve is normal in structure and function. Doppler and Color Flow revealed mild tricusp id regurgitation. There is no tricuspid valve stenosis. PULMONIC VALVE The pulmonic valve is not well visualized. Doppler and Color Flow revealed trace pulmonic valvular re gurgitation. GREAT VESSELS The aortic root is normal in size. The IVC is normal in size and collapses >50% with inspiration. PERICARDIAL EFFUSION There is no evidence of significant pericardial effusion. Critical Notification Critical Value: No <Conclusion> The left ventricular systolic function is normal. The Ejection Fraction is 55-60%. Pacer lead noted in RA/RV. The left atrium is moderately dilated. Trace mitral regurgitation. Mild tricuspid regurgitation. There is no evidence of significant pericardial effusion. Signed by : Amilcar Wells, Electronically Approved : 04/15/2020 11:02:26
== END ==
LOC: ECHO 13:40
PROVIDERS: ATTEND Internal Medicine Cardiovascular Disease
DX: I08.1 Rheumatic disorders of both mitral and tricuspid valves (principal); I48.91 Unspecified atrial fibrillation; Z95.0 Presence of cardiac pacemaker
CPT/HCPCS: 93306